=== PATIENT | female | born 1975 | race Caucasian/White ===

== ENCOUNTER → 2016-07-20 | Outpatient (CLI) | payer OTHER ==
--- NOTE | 2016-07-20 15:45 | CT ---
EXAMINATION TYPE: CT iac wo con DATE OF EXAM: 07/20/2016 2:35 PM COMPARISON: CT brain 15 July 2015 HISTORY: Arthralgia of temporomandibular joint CT DLP: 117.20mGycm Automated exposure control for dose reduction was used. FINDINGS: The external auditory canals are patent bilaterally. Mastoid air cells show fluid density on the right, to lesser extent there is some fluid density in the left temporal bone. The middle ear ossicles are symmetric and unremarkable. Some minimal soft tissue density is present abutting the au ditory ossicles on the right at the level of the tympanic membrane. The scutum is preserved bilatera lly. The cochlea and the semicircular canals are symmetric and unremarkable. Vestibular aqueduct an d internal carotid canal appear unremarkable. Temporomandibular joints are maintained bilaterally, s ome minimal marginal spurring suggestive of some mild osteoarthritic change, there is some joint spac e loss. 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 Additional findings above.
== END | disposition home or self-care (01) ==
LOC: RADCTMAIN 14:12
PROVIDERS: ATTEND Otolaryngology
DX: H70.92 Unspecified mastoiditis, left ear (principal)
CPT/HCPCS: 70480

== ENCOUNTER → 2016-08-05 | Outpatient (CLI) | payer OTHER ==
--- NOTE | 2016-08-05 09:49 | MR ---
EXAMINATION TYPE: MR cervical spine wo con DATE OF EXAM: 08/05/2016 8:41 AM COMPARISON: 04/06/2016 HISTORY: 40-year-old female with cervical spine disc disorder with radiculopathy. TECHNIQUE: Multiplanar, multisequence images of the cervical spine were acquired. FINDINGS: No craniocervical junction abnormality, predental space widening, or prevertebral soft tissue swellin g. Reversal of the normal cervical lordosis with preserved alignment. Similar mild diffuse heterogeneity of marrow signal. Redemonstrated variable disc desiccation and disc bulging/disc osteophyte complex formation particula rly from C3 through C7 levels with mild disc interspace narrowing at C5-C6 and C6-C7. Scattered mild facet degenerative changes are also present. At C2-C3, no significant spinal canal or neuroforaminal stenosis. At C3-C4, similar right paracentral disc osteophyte complex minimally impressing onto the ventral the paolo sac without significant spinal canal or neuroforaminal stenosis. Mild left-sided facet arthropath y is present. At C4-C5, left paracentral broad-based disc osteophyte complex with uncovertebral joint and facet deg enerative change. There is minimal impression on the ventral thecal sac abutting and minimally flatte racquel the ventral cord. No significant neuroforaminal stenosis. At C5-C6, redemonstrated left paracentral disc protrusion/disc osteophyte complex causing mild narrow ing of the spinal canal focally abutting and indenting the left ventral cord. Additional facet degene rative change without significant neuroforaminal stenosis. At C6/C7, redemonstrated left paracentral disc protrusion causing mild overall narrowing of the spina l canal and with similar focal abutment and indentation of the left ventral cord. There is left-sided uncovertebral joint and bilateral facet degenerative change mildly narrowing the left neuroforamen, similar to prior. At C7-T1, no significant spinal canal or neuroforaminal stenosis. No prevertebral or paravertebral soft tissue abnormality seen. The degree of patient motion artifact limits accurate assessment for any cord signal abnormality. No definite cord signal change on the axial sequence. IMPRESSION: 1. Relatively similar degenerative disc disease from C3 through C7 levels with disc bulges/disc osteo phyte complexes minimally impressing onto the thecal sac and causing minimal ventral cord flattening at various levels. 2. Scattered facet arthropathy. Preserved alignment. 3. The left paracentral disc protrusion at C6-C7 causing focal left ventral cord indentation, overall mild canal narrowing, and mild left neuroforaminal stenosis is unchanged as well.
== END | disposition home or self-care (01) ==
LOC: RADMRIMAIN 07:59
PROVIDERS: ATTEND Ophthalmology
DX: M48.02 Spinal stenosis, cervical region (principal); M99.71 Connective tissue and disc stenosis of intervertebral foramina of cervical region; M50.11 Cervical disc disorder with radiculopathy, high cervical region; M50.120 Mid-cervical disc disorder, unspecified level; M46.82 Other specified inflammatory spondylopathies, cervical region
CPT/HCPCS: 72141

== ENCOUNTER 2016-09-02 11:01 | Emergency (ER) | payer OTHER ==
[2016-09-02] MEDS ORDERED: ONDANSETRON 4 MG/2 ML VIAL IVP STA (11:57)
[2016-09-02] MEDS ORDERED: SODIUM CHLORIDE 0.9% 1,000 ML IV STA (11:57)
[2016-09-02] MEDS ORDERED: MORPHINE SULFATE 4 MG/ML SYRINGE IV STA (11:57)
[2016-09-02] MEDS ORDERED: diphenhydrAMINE 50 MG/ML 1 ML VIAL IVP STA (11:58)
[2016-09-02] MEDS ORDERED: ACETAMINOPHEN IV (For NPO) 1,000 MG in EMPTY BAG 1 BAG IVPB STA (11:58)
[2016-09-02 12:40] LABS: Basophils % (A) 0 %; CHCM 33.8; Eosinophils # (A) 0.2 k/uL (0-0.7); Eosinophils % (A) 2 %; HCT 38.8 % (34.0-46.0); HDW 2.13; HGB 12.6 gm/dL (11.4-16.0); Luc # (Auto) 0.15; Luc % (Auto) 1; Lymphocytes # (A) 2.2 k/uL (1.0-4.8); Lymphocytes % (A) 20 %; MCH 27.9 pg (25.0-35.0); MCHC 32.4 g/dL (31.0-37.0); MCV 86.1 fL (80.0-100.0); Mean Platelet Volume 7.4; Monocytes # (A) 0.4 k/uL (0-1.0); Monocytes % (A) 3 %; Neutrophils # (A) 7.9 k/uL (1.3-7.7); Neutrophils % (A) 73 %; WBC 10.9 k/uL (3.8-10.6); WBC (Perox) 11.13
[2016-09-02 12:52] LABS: ALT 40 U/L (9-52); AST 29 U/L (14-36); Alkaline Phosphatase 98 U/L (38-126); Anion Gap 8 mmol/L; Blood Urea Nitrogen 11 mg/dL (7-17); Calcium 9.5 mg/dL (8.4-10.2); Carbon Dioxide 27 mmol/L (22-30); Chloride 104 mmol/L (98-107); Glucose 92 mg/dL (74-99); Magnesium 2.1 mg/dL (1.6-2.3); Non-African American GFR(MDRD) >60 (>60 ml/min/1.73 sqM); Phosphorous 3.5 mg/dL (2.5-4.5); Potassium 4.1 mmol/L (3.5-5.1); Sodium 139 mmol/L (137-145); Total Bilirubin 0.6 mg/dL (0.2-1.3)
[2016-09-02 13:03] LABS: Creatine Kinase 56 U/L (30-135)
--- NOTE | 2016-09-02 13:03 | XR ---
EXAMINATION TYPE: XR chest 1V DATE OF EXAM: 09/02/2016 12:53 PM HISTORY: shunt. REFERENCE: Previous study dated 03/11/2015. FINDINGS: The lungs are clear. Pleural spaces are clear. Heart size is within normal limits. No shunt tubing is visualized. IMPRESSION: NORMAL CHEST.
--- NOTE | 2016-09-02 13:05 | XR ---
EXAMINATION TYPE: XR abdomen 1V DATE OF EXAM ORDERED: 09/02/2016 12:53 PM HISTORY: shunt. COMPARISON: Previous study dated 03/17/2016. FINDINGS: There has been a previous cholecystectomy. Tubing projects over the right midabdomen. The abdominal gas pattern is normal. There is no evidence of obstruction or free air. IMPRESSION: 1. NO ACUTE ABDOMINAL ABNORMALITY. 2. THE PATIENT'S SHUNT TUBING MAY HAVE BECOME DISCONNECTED AND IS COILED IN THE RIGHT MID ABDOMEN.
--- NOTE | 2016-09-02 13:06 | XR ---
EXAMINATION TYPE: XR skull complete DATE OF EXAM ORDERED: 09/02/2016 12:53 PM HISTORY: shunt. COMPARISON: None. FINDINGS: The skull appears normal. No depressed skull fractures are seen. The sella turcica appears normal. No shunt tubing is identified. IMPRESSION: NORMAL SKULL.
[2016-09-02 13:13] LABS: Creatine Kinase MB <0.2 ng/mL (0.0-2.4)
[2016-09-02] MEDS ORDERED: METOCLOPRAMIDE 5 MG/ML 2 ML VIAL IVP STA (13:39)
[2016-09-02] MEDS ORDERED: HYDROmorphone 2 MG/ML 1 ML SYRINGE IVP STA (13:39)
--- NOTE | 2016-09-02 13:40 | ED ---
General Adult HPI - General Chief complaint: Headache Stated complaint: headache, back pain Time Seen by Provider: 09/02/16 11:35 Source: patient, RN notes reviewed, old records reviewed Mode of arrival: ambulatory Limitations: no limitations - History of Present Illness Initial comments: This is a 40-year-old female here for evaluation of headache. Severe headache. Patient has history of pseudotumor cerebra. She has shunt placement. Patient is medically increasing for 2 days and feels like the shunt position movement in her back. Patient also is complaining to her low back area where the shunt is placed. Patient denies any other injuries, no trauma, no fevers. - Related Data Home Medications Medication Instructions Recorded Confirmed Acetaminophen Tab [Tylenol] 500 mg PO Q4H PRN 03/13/14 09/02/16 Folic Acid 1 mg PO DAILY 03/13/14 09/02/16 Nitroglycerin Sl Tabs [Nitrostat] 0.4 mg SUBLINGUAL Q5M PRN 03/13/14 09/02/16 Albuterol Inhaler [Ventolin Hfa 2 puff INHALATION RT-Q6H PRN 01/04/15 09/02/16 Inhaler] Albuterol Nebulized [Ventolin 2.5 mg INHALATION RT-Q6H PRN 03/06/15 09/02/16 Nebulized] Citalopram Hydrobromide [CeleXA] 40 mg PO HS 10/26/15 09/02/16 Loratadine [Claritin] 10 mg PO HS 10/26/15 09/02/16 Pioglitazone [Actos] 15 mg PO QAM 03/14/16 09/02/16 Levothyroxine Sodium [Synthroid] 50 mcg PO MOTUWETHFRSA 03/17/16 09/02/16 Losartan Potassium [Cozaar] 100 mg PO HS 03/17/16 09/02/16 Meclizine [Antivert] 12.5 mg PO TID 03/25/16 09/02/16 Ergocalciferol [Vitamin D2 50,000 unit PO SA 09/02/16 09/02/16 (DRISDOL)] Gabapentin [Neurontin] 300 mg PO HS 09/02/16 09/02/16 Levothyroxine Sodium [Synthroid] 100 mcg PO PADILLA 09/02/16 09/02/16 Ranitidine HCl 150 mg PO BID 09/02/16 09/02/16 Allergies Allergy/AdvReac Type Severity Reaction Status Date / Time NSAIDS (Non-Steroidal Allergy RENAL Verified 09/02/16 12:16 Anti-Inflamma DISEASE propranolol HCl Allergy Rash/Hives Verified 09/02/16 12:16 [From Inderal LA] ibuprofen [From Motrin] AdvReac RENAL Verified 09/02/16 12:16 DISEASE IRON INFUSION AdvReac Dyspnea Uncoded 09/02/16 11:06 Review of Systems ROS Statement: Those systems with pertinent positive or pertinent negative responses have been documented in the HPI. ROS Other: All systems not noted in ROS Statement are negative. 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 Hx: anemia,vertigo, hiatal hernia History of Any Multi-Drug Resistant Organisms: None Reported Past Surgical History: Cholecystectomy, Hernia Repair, Hysterectomy, Orthopedic Surgery, Tubal Ligation, Uterine Ablation Additional Past Surgical History / Comment(s): lumbar shunt wraps around to rt side of abd., arthroscopy left knee x 3 Past Anesthesia/Blood Transfusion Reactions: Motion Sickness, Postoperative Nausea & Vomiting (PONV) Additional Past Anesthesia/Blood Transfusion Reaction / Comment(s): vertigo Past Psychological History: Depression Smoking Status: Former smoker Past Alcohol Use History: Rare Additional Past Alcohol Use History / Comment(s): quit smoking 2 weeks ago, smoked since age 15, < 1/2ppd Past Drug Use History: None Reported - Past Family History Brother(s) Family Medical History: Cancer Mother Family Medical History: AFIB Father Family Medical History: Cancer Additional Family Medical History / Comment(s): Colon CA General Exam Limitations: no limitations General appearance: alert, in no apparent distress Head exam: Present: atraumatic, normocephalic, normal inspection Eye exam: Present: normal appearance, PERRL, EOMI. Absent: scleral icterus, conjunctival injection, periorbital swelling ENT exam: Present: normal exam, mucous membranes moist Neck exam: Present: normal inspection. Absent: tenderness, meningismus, lymphadenopathy Respiratory exam: Present: normal lung sounds bilaterally. Absent: respiratory distress, wheezes, rales, rhonchi, stridor Cardiovascular Exam: Present: regular rate, normal rhythm, normal heart sounds. Absent: systolic murmur, diastolic murmur, rubs, gallop, clicks GI/Abdominal exam: Present: soft, normal bowel sounds. Absent: distended, tenderness, guarding, rebound, rigid Extremities exam: Present: normal inspection, full ROM, normal capillary refill. Absent: tenderness, pedal edema, joint swelling, calf tenderness Back exam: Present: normal inspection Neurological exam: Present: alert, oriented X3, CN II-XII intact Psychiatric exam: Present: normal affect, normal mood Skin exam: Present: warm, dry, intact, normal color. Absent: rash Course Vital Signs 09/02/16 09/02/16 11:05 14:00 Temperature 98.2 F 98 F Pulse Rate 88 70 Respiratory 20 16 Rate Blood Pressure 135/72 120/70 O2 Sat by Pulse 97 98 Oximetry Medical Decision Making - Medical Decision Making 40. ER for evaluation of headache, patient has displacement of ventricular shunt, patient will follow-up with Dr. dahiana toledo, pain is improved at this time patient can be discharged home - Lab Data Result diagrams: 09/02/16 12:32 09/02/16 12:32 Lab Results 09/02/16 09/02/16 09/02/16 Range/Units 12:32 12:32 12:32 WBC 10.9 H (3.8-10.6) k/uL RBC 4.50 (3.80-5.40) m/uL Hgb 12.6 (11.4-16.0) gm/dL Hct 38.8 (34.0-46.0) % MCV 86.1 (80.0-100.0) fL MCH 27.9 (25.0-35.0) pg MCHC 32.4 (31.0-37.0) g/dL RDW 13.0 (11.5-15.5) % Plt Count 253 (150-450) k/uL Neutrophils % 73 % Lymphocytes % 20 % Monocytes % 3 % Eosinophils % 2 % Basophils % 0 % Neutrophils # 7.9 H (1.3-7.7) k/uL Lymphocytes # 2.2 (1.0-4.8) k/uL Monocytes # 0.4 (0-1.0) k/uL Eosinophils # 0.2 (0-0.7) k/uL Basophils # 0.0 (0-0.2) k/uL Sodium 139 (137-145) mmol/L Potassium 4.1 (3.5-5.1) mmol/L Chloride 104 (98-107) mmol/L Carbon Dioxide 27 (22-30) mmol/L Anion Gap 8 mmol/L BUN 11 (7-17) mg/dL Creatinine 1.00 (0.52-1.04) mg/dL Est GFR (MDRD) Af Amer >60 (>60 ml/min/1.73 sqM) Est GFR (MDRD) Non-Af >60 (>60 ml/min/1.73 sqM) Glucose 92 (74-99) mg/dL Calcium 9.5 (8.4-10.2) mg/dL Phosphorus 3.5 (2.5-4.5) mg/dL Magnesium 2.1 (1.6-2.3) mg/dL Total Bilirubin 0.6 (0.2-1.3) mg/dL AST 29 (14-36) U/L ALT 40 (9-52) U/L Alkaline Phosphatase 98 (38-126) U/L Total Creatine Kinase 56 (30-135) U/L CK-MB (CK-2) <0.2 (0.0-2.4) ng/mL CK-MB (CK-2) Rel Index Total Protein 7.0 (6.3-8.2) g/dL Albumin 3.9 (3.5-5.0) g/dL - Radiology Data Radiology results: report reviewed (X-ray shunt series does show displacement of shot), image reviewed Disposition Clinical Impression: Displacement of brain ventricular shunt, Headache Disposition: HOME SELF-CARE Condition: Good Instructions: Acute Headache (ED) Referrals: Meryl Munoz MD [Primary Care Provider] - 1-2 days
[2016-09-02 14:01] VITALS: BP 120/70; PULSE 70; RESP 16; TEMP 98
== END 2016-09-02 14:00 | disposition home or self-care (01) ==
LOC: EC 11:01
DX: T85.02XA Displacement of ventricular intracranial (communicating) shunt, initial encounter (principal); R51 Headache; M54.9 Dorsalgia, unspecified; I10 Essential (primary) hypertension; E07.9 Disorder of thyroid, unspecified; E11.9 Type 2 diabetes mellitus without complications; Z86.79 Personal history of other diseases of the circulatory system; K21.9 Gastro-esophageal reflux disease without esophagitis; Z53.20 Procedure and treatment not carried out because of patient's decision for unspecified reasons; Z79.52 Long term (current) use of systemic steroids; Z79.899 Other long term (current) drug therapy; Z88.6 Allergy status to analgesic agent; Z88.8 Allergy status to other drugs, medicaments and biological substances; Z98.2 Presence of cerebrospinal fluid drainage device; Y83.8 Other surgical procedures as the cause of abnormal reaction of the patient, or of later complication, without mention of misadventure at the time of the procedure
CPT/HCPCS: 36415; 80053; 82550; 82553; 83735; 84100; 85025; 70260; 71010; 74000; 99284; 96374; 96375 ×4; 96361; J1170; J1200; J2765; J2405; J0131

== ENCOUNTER → 2016-12-08 | Outpatient (CLI) | payer OTHER ==
[2016-12-08 08:37] LABS: Blood Urea Nitrogen 14 mg/dL (7-17); Non-African American GFR(MDRD) >60 (>60 ml/min/1.73 sqM)
--- NOTE | 2016-12-08 14:11 | MR ---
EXAMINATION TYPE: MR lumbar spine wo/w con DATE OF EXAM: 12/08/2016 COMPARISON: 11/05/2010 HISTORY: Lumbago CONTRAST: 20 mL intravenous MultiHance. TECHNIQUE: Multiplanar, multisequence images of the lumbar spine were acquired. FINDINGS: Cord terminates at the T12-L1 level. L5-S1: No significant disc bulge or disc herniation. No spinal canal stenosis. No foraminal stenosi s. Neural foramen are patent.. L4-L5: No significant disc bulge or disc herniation. No spinal canal stenosis. No foraminal stenosi s. Neural foramen are patent.. L3-L4: No significant disc bulge or disc herniation. No spinal canal stenosis. No foraminal stenosi s. Neural foramen are patent.. L2-L3: No significant disc bulge or disc herniation. No spinal canal stenosis. No foraminal stenosi s. Neural foramen are patent.. L1-L2: No significant disc bulge or disc herniation. No spinal canal stenosis. No foraminal stenosi s. Neural foramen are patent.. T12-L1: No significant disc bulge or disc herniation. No spinal canal stenosis. No foraminal stenos is. Neural foramen are patent.. No abnormal enhancement. IMPRESSION: 1. Normal MRI lumbar spine. 2. Examination appears stable from comparison.
== END | disposition home or self-care (01) ==
LOC: RADMRIMAIN 08:13
PROVIDERS: ATTEND Psychiatry & Neurology Neurology
DX: M54.5 Low back pain (principal)
CPT/HCPCS: 82565; 84520; 72158; 36415; A9577

== ENCOUNTER 2018-02-25 11:33 | Emergency (ER) | payer OTHER ==
[2018-02-25 11:46] VITALS: BP 104/77; PULSE 80; RESP 16; TEMP 98.5
[2018-02-25] MEDS ORDERED: CYCLOBENZAPRINE 10 MG TAB PO STA (12:30)
--- NOTE | 2018-02-25 12:45 | ED ---
General Adult HPI - General Chief complaint: Extremity Problem,Nontraumatic Stated complaint: rt sided hip pain Source: patient Mode of arrival: ambulatory Limitations: no limitations - History of Present Illness Initial comments: Dictation was produced using [employer] dictation software. please excuse any grammatical, word or spelling errors. Chief Complaint: 42-year-old female past medical history of pseudotumor cerebri status post shunt and diabetes presents with right hip pain. History of Present Illness: Chin helping her family members, when she began feeling these symptoms. Denies any trauma. Denies any constitutional symptoms. Patient denies any neuro deficits. She localizes the pain to her right lateral hip with radiation down to the right lateral knee. Patient has history of left knee arthritis. The ROS documented in this emergency department record has been reviewed and confirmed by me. Those systems with pertinent positive or negative responses have been documented in the HPI. All other systems are other negative and/or noncontributory. - Related Data Home Medications Medication Instructions Recorded Confirmed Acetaminophen Tab [Tylenol] 500 mg PO Q4H PRN 03/13/14 04/24/17 Folic Acid 1 mg PO DAILY 03/13/14 04/24/17 Nitroglycerin Sl Tabs [Nitrostat] 0.4 mg SUBLINGUAL Q5M PRN 03/13/14 04/24/17 Albuterol Inhaler [Ventolin Hfa 2 puff INHALATION RT-Q6H PRN 01/04/15 04/24/17 Inhaler] Albuterol Nebulized [Ventolin 2.5 mg INHALATION RT-Q6H PRN 03/06/15 04/24/17 Nebulized] Citalopram Hydrobromide [CeleXA] 40 mg PO HS 10/26/15 04/24/17 Loratadine [Claritin] 10 mg PO HS 10/26/15 04/24/17 Pioglitazone [Actos] 15 mg PO QAM 03/14/16 04/24/17 Levothyroxine Sodium [Synthroid] 50 mcg PO MOTUWETHFRSA 03/17/16 04/24/17 Losartan Potassium [Cozaar] 100 mg PO QAM 03/17/16 04/24/17 Meclizine [Antivert] 12.5 mg PO BID 03/25/16 04/24/17 Gabapentin [Neurontin] 300 mg PO HS 09/02/16 04/24/17 Levothyroxine Sodium [Synthroid] 100 mcg PO PADILLA 09/02/16 04/24/17 Ranitidine HCl 150 mg PO BID 09/02/16 04/24/17 Dicyclomine [Bentyl] 10 mg PO BID 04/19/17 04/24/17 Ergocalciferol [Vitamin D2] 50,000 unit PO SA 04/19/17 04/24/17 Metoclopramide [Reglan] 10 mg PO BID 04/19/17 04/24/17 Omeprazole [PriLOSEC] 20 mg PO AC-BID 04/19/17 04/24/17 Previous Rx's Medication Instructions Recorded Cyclobenzaprine [Flexeril] 10 mg PO TID PRN #12 tab 02/25/18 Allergies Allergy/AdvReac Type Severity Reaction Status Date / Time levofloxacin [From Levaquin] Allergy Rash/Hives Verified 02/25/18 11:46 NSAIDS (Non-Steroidal Allergy RENAL Verified 02/25/18 11:46 Anti-Inflamma DISEASE propranolol HCl Allergy Rash/Hives Verified 02/25/18 11:46 [From Inderal LA] ibuprofen [From Motrin] AdvReac RENAL Verified 02/25/18 11:46 DISEASE IRON INFUSION AdvReac Dyspnea Uncoded 02/25/18 11:46 Review of Systems ROS Statement: Those systems with pertinent positive or pertinent negative responses have been documented in the HPI. ROS Other: All systems not noted in ROS Statement are negative. 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 Hx: anemia, vertigo, hiatal hernia History of Any Multi-Drug Resistant Organisms: None Reported Past Surgical History: Cholecystectomy, Hernia Repair, Hysterectomy, Orthopedic Surgery, Tubal Ligation, Uterine Ablation Additional Past Surgical History / Comment(s): NECK FUSION 5-6-7,lumbar shunt wraps around to rt side of abd., arthroscopy left knee x 3 Past Anesthesia/Blood Transfusion Reactions: Motion Sickness, Postoperative Nausea & Vomiting (PONV) Additional Past Anesthesia/Blood Transfusion Reaction / Comment(s): vertigo Past Psychological History: Anxiety, Depression Smoking Status: Former smoker Past Alcohol Use History: Rare Past Drug Use History: None Reported - Past Family History Brother(s) Family Medical History: Cancer Additional Family Medical History / Comment(s): THROAT Mother Family Medical History: AFIB, Cancer Additional Family Medical History / Comment(s): BONE Father Family Medical History: Cancer Additional Family Medical History / Comment(s): Colon CA General Exam - General Exam Comments Initial Comments: PHYSICAL EXAM: General Impression: Alert and oriented x3, not in acute distress HEENT: Normocephalic atraumatic, extra-ocular movements intact, pupils equal and reactive to light bilaterally, mucous membranes moist. Cardiovascular: Heart regular rate and rhythm, S1&S2 audible, no murmurs, rubs or gallops Chest: Lungs clear to auscultation bilaterally, no rhonchi, no wheeze, no rales Abdomen: Bowel sounds present, abdomen soft, non-tender, non-distended, no organomegaly Musculoskeletal: Pulses present and equal in all extremities, no peripheral edema, tenderness to palpation over the right IT band Motor: Power 5/5 bilaterally, no focal deficits noted Neurological: CN II-XII grossly intact, no focal motor or sensory deficits noted Skin: Intact with no visualized rashes Psych: Normal affect and mood Limitations: no limitations Course Vital Signs 02/25/18 11:43 Temperature 98.5 F Pulse Rate 80 Respiratory 16 Rate Blood Pressure 104/77 O2 Sat by Pulse 98 Oximetry Medical Decision Making - Medical Decision Making ED course: 42-year-old female presents with right lower extremity pain. Vital signs upon arrival are within acceptable limits. Patient is well-appearing. She is able to ambulate however with some pain. No pyrexia. Patient's pain is localized to the right lateral hip. Patient's symptoms likely secondary to strain of the right IT band. Patient given Flexeril. Patient counseled on early mobility and pain control. Patient prescription for Flexeril. X-rays obtained showing no acute processes. There is mild joint space narrowing bilaterally. This could represent arthritis. Patient given prescription for Flexeril. She is discharged told to follow-up with her primary care physician. Patient understandable agreeable to plan. She is told to return to the [facility] department any worsening symptoms. Disposition Clinical Impression: Muscle strain of thigh Disposition: HOME SELF-CARE Condition: Good Prescriptions: Cyclobenzaprine [Flexeril] 10 mg PO TID PRN #12 tab PRN Reason: Pain Is patient prescribed a controlled substance at d/c from ED?: No When asked, does pt state using other controlled substances?: No Referrals: Kelsey Pederson MD [Primary Care Provider] - 1-2 days Time of Disposition: 13:25
--- NOTE | 2018-02-25 13:13 | XR ---
EXAMINATION TYPE: XR Hip RT and AP Pelvis DATE OF EXAM: 02/25/2018 COMPARISON: NONE HISTORY: 42 year-old female right hip pain TECHNIQUE: AP view pelvis and 2 views right hip. FINDINGS: SI joints are symmetric and intact as is the pubic symphysis. There is mild joint space narrowing in both hips with mild marginal spurring. No acute fracture, subluxation, or dislocation. IMPRESSION: Mild joint space narrowing at both hips. No acute osseous abnormality seen.
== END 2018-02-25 13:36 | disposition home or self-care (01) ==
LOC: EC 11:33
DX: S76.911A Strain of unspecified muscles, fascia and tendons at thigh level, right thigh, initial encounter (principal); J44.9 Chronic obstructive pulmonary disease, unspecified; E11.9 Type 2 diabetes mellitus without complications; K21.9 Gastro-esophageal reflux disease without esophagitis; I10 Essential (primary) hypertension; G47.30 Sleep apnea, unspecified; E07.9 Disorder of thyroid, unspecified; F41.9 Anxiety disorder, unspecified; F32.9 Major depressive disorder, single episode, unspecified; Z87.891 Personal history of nicotine dependence; Z87.39 Personal history of other diseases of the musculoskeletal system and connective tissue; Z99.89 Dependence on other enabling machines and devices; Z90.49 Acquired absence of other specified parts of digestive tract; Z90.710 Acquired absence of both cervix and uterus; Z98.51 Tubal ligation status; Z98.1 Arthrodesis status; Z98.890 Other specified postprocedural states; Z79.84 Long term (current) use of oral hypoglycemic drugs; Z79.899 Other long term (current) drug therapy; Z88.1 Allergy status to other antibiotic agents; Z88.6 Allergy status to analgesic agent; Z88.8 Allergy status to other drugs, medicaments and biological substances; X58.XXXA Exposure to other specified factors, initial encounter
CPT/HCPCS: 73502; 99284

== ENCOUNTER 2018-04-25 06:56 | Day surgery (SDC) | payer OTHER ==
[2018-04-23 08:33] VITALS: BMI 49.3
[~2018-04-25 06:56] MED LIST: HYDROmorphone 1 MG/ML 1 ML SYRINGE IVP PRN; LACTATED RINGERS 1,000 ML IV SCH
[2018-04-25 07:21] VITALS: RESP 16; TEMP 97.9
[2018-04-25 07:24] LABS: Glucose,Whole Blood 106 mg/dL (75-99)
[2018-04-25] MEDS ORDERED: PROPOFOL 10 MG/ML 20 ML VIAL IV ONE (08:01)
--- NOTE | 2018-04-25 08:03 | P.GSHP ---
History of Present Illness H&P Date: 04/25/18 Chief Complaint: GI bleed This a 42-year-old female presents today for EGD and colonoscopy. Patient had issues with GI bleed. She's also complaints of abdominal pain. 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 Hx: anemia, vertigo, History of Any Multi-Drug Resistant Organisms: None Reported Past Surgical History: Cholecystectomy, Hernia Repair, Hysterectomy, Orthopedic Surgery, Tubal Ligation, Uterine Ablation Additional Past Surgical History / Comment(s): NECK FUSION 5-6-7,lumbar shunt wraps around to rt side of abd., arthroscopy left knee x 3; colonoscopy Past Anesthesia/Blood Transfusion Reactions: Motion Sickness, Postoperative Nausea & Vomiting (PONV) Additional Past Anesthesia/Blood Transfusion Reaction / Comment(s): vertigo Smoking Status: Former smoker - Past Family History Brother(s) Family Medical History: Cancer Additional Family Medical History / Comment(s): THROAT Mother Family Medical History: AFIB, Cancer Additional Family Medical History / Comment(s): BONE Father Family Medical History: Cancer Additional Family Medical History / Comment(s): Colon CA Medications and Allergies Home Medications Medication Instructions Recorded Confirmed Type Acetaminophen Tab [Tylenol] 500 mg PO Q4H PRN 03/13/14 04/25/18 History Folic Acid 1 mg PO DAILY 03/13/14 04/25/18 History Nitroglycerin Sl Tabs [Nitrostat] 0.4 mg SUBLINGUAL Q5M PRN 03/13/14 04/23/18 History Albuterol Inhaler [Ventolin Hfa 2 puff INHALATION RT-Q6H PRN 01/04/15 04/25/18 History Inhaler] Citalopram Hydrobromide [CeleXA] 40 mg PO HS 10/26/15 04/25/18 History Loratadine [Claritin] 10 mg PO HS 10/26/15 04/25/18 History Levothyroxine Sodium [Synthroid] 50 mcg PO MOTUWETHFRSA 03/17/16 04/25/18 History Meclizine [Antivert] 12.5 mg PO BID 03/25/16 04/25/18 History Gabapentin [Neurontin] 300 mg PO HS 09/02/16 04/25/18 History Levothyroxine Sodium [Synthroid] 100 mcg PO PADILLA 09/02/16 04/25/18 History Ranitidine HCl 150 mg PO BID 09/02/16 04/25/18 History Dicyclomine [Bentyl] 10 mg PO BID 04/19/17 04/25/18 History Ergocalciferol [Vitamin D2] 50,000 unit PO SA 04/19/17 04/25/18 History Metoclopramide [Reglan] 10 mg PO BID PRN 04/19/17 04/25/18 History Omeprazole [PriLOSEC] 40 mg PO AC-BRKFST 04/19/17 04/25/18 History Cyclobenzaprine [Flexeril] 10 mg PO TID PRN #12 tab 02/25/18 04/23/18 Rx Atorvastatin [Lipitor] 20 mg PO HS 04/23/18 04/25/18 History Beclomethasone Dipropionate [Qvar 1 puff INHALATION DAILY 04/23/18 04/25/18 History 80 mcg] Fluticasone Nasal [place] [Flonase 1 spray EA NOSTRIL DAILY 04/23/18 04/25/18 History Nasal [place]] metFORMIN HCL [Glucophage] 500 mg PO BID 04/23/18 04/25/18 History Allergies Allergy/AdvReac Type Severity Reaction Status Date / Time levofloxacin [From Levaquin] Allergy Rash/Hives Verified 04/25/18 07:16 NSAIDS (Non-Steroidal Allergy RENAL Verified 04/25/18 07:16 Anti-Inflamma DISEASE propranolol HCl Allergy Rash/Hives Verified 04/25/18 07:16 [From Inderal LA] ibuprofen [From Motrin] AdvReac RENAL Verified 04/25/18 07:16 DISEASE IRON INFUSION AdvReac Dyspnea Uncoded 04/25/18 07:16 Surgical - Exam Vital Signs Temp Pulse Resp BP Pulse Ox 97.9 F 74 16 121/83 97 04/25/18 07:19 04/25/18 07:19 04/25/18 07:19 04/25/18 07:19 04/25/18 07:19 - General well developed, no distress - Eyes PERRL - ENT normal pinna - Neck no masses - Respiratory normal expansion - Cardiovascular Rhythm: regular - Abdomen Abdomen: soft, non tender Results - Labs Abnormal Lab Results - Last 24 Hours (Table) 04/25/18 Range/Units 07:21 POC Glucose (mg/dL) 106 H (75-99) mg/dL Assessment and Plan Assessment: GI bleed. We'll perform EGD and colonoscopy.
--- NOTE | 2018-04-25 08:35 | P.OP ---
Date of Procedure: 04/25/18 Preoperative Diagnosis: GI bleed Postoperative Diagnosis: Antral gastritis Mild internal hemorrhoids Procedure(s) Performed: EGD Colonoscopy Anesthesia: MAC Surgeon: Paul Orta Pathology: other (Antrum) Condition: stable Disposition: PACU Description of Procedure: Patient's placed on the endoscopy table in the lateral position. She received IV sedation. The gastroscope placed oropharynx passed in the esophagus and stomach. Scope was then placed through the pylorus. First and second portion of the duodenum appeared normal. Scope was then brought back the antrum this was inflamed. A biopsies performed. Scope was unretroflexed and remainder stomach appeared normal. The patient appeared to have a previous fundoplication. There is no evidence of a hiatal hernia. The distal esophagus appeared normal. The proximal esophagus..e Scope was withdrawn for patient. Next digital rectal exam was performed which revealed mild internal hemorrhoids.. Flexible colonoscope was then placed patient anus and passed throughout the entire colon. The ileocecal valve was visualized. The cecum, ascending and transverse colon appeared normal. The descending and sigmoid: appeared normal. Scope was withdrawn into the sigmoid colon was normal. Scope was then withdrawn back the rectum and this appeared normal. Scope was withdrawn for patient.
[2018-04-25 08:39] VITALS: PULSE 68
[2018-04-25 08:51] VITALS: BP 110/69
== END 2018-04-25 09:14 | disposition home or self-care (01) ==
LOC: ORWHC2ENDO 06:56
PROVIDERS: ATTEND Surgery
DX: K29.50 Unspecified chronic gastritis without bleeding (principal); K64.8 Other hemorrhoids; J44.9 Chronic obstructive pulmonary disease, unspecified; E11.9 Type 2 diabetes mellitus without complications; E07.9 Disorder of thyroid, unspecified; Z87.891 Personal history of nicotine dependence; K21.9 Gastro-esophageal reflux disease without esophagitis; Z88.6 Allergy status to analgesic agent; Q60.0 Renal agenesis, unilateral; Z90.49 Acquired absence of other specified parts of digestive tract; Z90.710 Acquired absence of both cervix and uterus; Z80.0 Family history of malignant neoplasm of digestive organs; Z79.84 Long term (current) use of oral hypoglycemic drugs; Z79.890 Hormone replacement therapy; Z79.899 Other long term (current) drug therapy; Z88.3 Allergy status to other anti-infective agents; Z88.8 Allergy status to other drugs, medicaments and biological substances
CPT/HCPCS: 88305; 45378; 43239; J2704

== ENCOUNTER 2018-06-30 11:29 | Emergency (ER) | payer OTHER ==
[2018-06-30 11:49] VITALS: BP 113/82; PULSE 74; RESP 18; TEMP 98.2
--- NOTE | 2018-06-30 12:08 | ED ---
General Adult HPI - General Chief complaint: ENT Stated complaint: ear pain Time Seen by Provider: 06/30/18 11:54 Source: patient, RN notes reviewed Mode of arrival: ambulatory Limitations: no limitations - History of Present Illness Initial comments: Patient is a pleasant 42-year-old female presenting to the emergency Department with complaints of sinus congestion and left ear pain. Symptoms have been present for one or 2 weeks. Patient states she was started on doxycycline 1 week ago however no improvement of symptoms. Patient has sinus congestion with drainage. Patient does have occasional cough with occasional brown/green sputum. Patient has left ear pain. No dyspnea. No fevers however patient has had chills. - Related Data Home Medications Medication Instructions Recorded Confirmed Acetaminophen Tab [Tylenol] 500 mg PO Q4H PRN 03/13/14 04/25/18 Folic Acid 1 mg PO DAILY 03/13/14 04/25/18 Nitroglycerin Sl Tabs [Nitrostat] 0.4 mg SUBLINGUAL Q5M PRN 03/13/14 04/23/18 Albuterol Inhaler [Ventolin Hfa 2 puff INHALATION RT-Q6H PRN 01/04/15 04/25/18 Inhaler] Citalopram Hydrobromide [CeleXA] 40 mg PO HS 10/26/15 04/25/18 Loratadine [Claritin] 10 mg PO HS 10/26/15 04/25/18 Levothyroxine Sodium [Synthroid] 50 mcg PO MOTUWETHFRSA 03/17/16 04/25/18 Meclizine [Antivert] 12.5 mg PO BID 03/25/16 04/25/18 Gabapentin [Neurontin] 300 mg PO HS 09/02/16 04/25/18 Levothyroxine Sodium [Synthroid] 100 mcg PO PADILLA 09/02/16 04/25/18 Ranitidine HCl 150 mg PO BID 09/02/16 04/25/18 Dicyclomine [Bentyl] 10 mg PO BID 04/19/17 04/25/18 Ergocalciferol [Vitamin D2] 50,000 unit PO SA 04/19/17 04/25/18 Metoclopramide [Reglan] 10 mg PO BID PRN 04/19/17 04/25/18 Omeprazole [PriLOSEC] 40 mg PO AC-BRKFST 04/19/17 04/25/18 Atorvastatin [Lipitor] 20 mg PO HS 04/23/18 04/25/18 Beclomethasone Dipropionate [Qvar 1 puff INHALATION DAILY 04/23/18 04/25/18 80 mcg] Fluticasone Nasal [place] [Flonase 1 spray EA NOSTRIL DAILY 04/23/18 04/25/18 Nasal [place]] metFORMIN HCL [Glucophage] 500 mg PO BID 04/23/18 04/25/18 Previous Rx's Medication Instructions Recorded Cyclobenzaprine [Flexeril] 10 mg PO TID PRN #12 tab 02/25/18 Amoxic-Pot Clav 875-125Mg 1 tab PO Q12HR #28 tablet 06/30/18 [Augmentin 875-125] Allergies Allergy/AdvReac Type Severity Reaction Status Date / Time levofloxacin [From Levaquin] Allergy Rash/Hives Verified 06/30/18 11:49 NSAIDS (Non-Steroidal Allergy RENAL Verified 06/30/18 11:49 Anti-Inflamma DISEASE propranolol HCl Allergy Rash/Hives Verified 06/30/18 11:49 [From Inderal LA] ibuprofen [From Motrin] AdvReac RENAL Verified 06/30/18 11:49 DISEASE IRON INFUSION AdvReac Dyspnea Uncoded 06/30/18 11:49 Review of Systems ROS Statement: Those systems with pertinent positive or pertinent negative responses have been documented in the HPI. ROS Other: All systems not noted in ROS Statement are negative. Constitutional: Reports: chills. Denies: fever Eyes: Denies: eye pain ENT: Reports: ear pain, congestion Respiratory: Reports: cough. 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 Hx: anemia, vertigo, History of Any Multi-Drug Resistant Organisms: None Reported Past Surgical History: Cholecystectomy, Hernia Repair, Hysterectomy, Orthopedic Surgery, Tubal Ligation, Uterine Ablation Additional Past Surgical History / Comment(s): NECK FUSION 5-6-7,lumbar shunt wraps around to rt side of abd., arthroscopy left knee x 3; colonoscopy Past Anesthesia/Blood Transfusion Reactions: Motion Sickness, Postoperative Nausea & Vomiting (PONV) Additional Past Anesthesia/Blood Transfusion Reaction / Comment(s): vertigo Past Psychological History: Anxiety, Depression Smoking Status: Former smoker - Past Family History Brother(s) Family Medical History: Cancer Additional Family Medical History / Comment(s): THROAT Mother Family Medical History: AFIB, Cancer Additional Family Medical History / Comment(s): BONE Father Family Medical History: Cancer Additional Family Medical History / Comment(s): Colon CA General Exam Limitations: no limitations General appearance: alert, in no apparent distress Head exam: Present: atraumatic Eye exam: Present: normal appearance ENT exam: Present: normal oropharynx, other (Left TM with mild erythema and bulging. The superior portion may have an old perforation.) Neck exam: Present: normal inspection Respiratory exam: Present: normal lung sounds bilaterally. Absent: respiratory distress, wheezes Cardiovascular Exam: Present: regular rate, normal rhythm GI/Abdominal exam: Present: soft. Absent: tenderness Extremities exam: Present: normal inspection. Absent: pedal edema, calf tenderness Neurological exam: Present: alert Psychiatric exam: Present: normal affect, normal mood Skin exam: Present: normal color Course Vital Signs 06/30/18 11:43 Temperature 98.2 F Pulse Rate 74 Respiratory 18 Rate Blood Pressure 113/82 O2 Sat by Pulse 97 Oximetry Disposition Clinical Impression: Sinusitis, Left otitis media Disposition: HOME SELF-CARE Condition: Stable Instructions: Earache (ED), Sinusitis (ED) Additional Instructions: Please follow-up with primary care physician in the next couple days for recheck. [id number] saline nasal spray. Please also follow-up with ENT. Return for difficulty breathing, worsening or change in symptoms, or other concerns. Prescriptions: Amoxic-Pot Clav 875-125Mg [Augmentin 875-125] 1 tab PO Q12HR #28 tablet Is patient prescribed a controlled substance at d/c from ED?: No Referrals: Kelsey Pederson MD [Primary Care Provider] - 1-2 days Raúl Liu MD [STAFF PHYSICIAN] - 1-2 days Time of Disposition: 12:07
== END 2018-06-30 12:15 | disposition home or self-care (01) ==
LOC: EC 11:29
DX: H66.92 Otitis media, unspecified, left ear (principal); J32.9 Chronic sinusitis, unspecified; J44.9 Chronic obstructive pulmonary disease, unspecified; E11.9 Type 2 diabetes mellitus without complications; K21.9 Gastro-esophageal reflux disease without esophagitis; G47.30 Sleep apnea, unspecified; Z99.89 Dependence on other enabling machines and devices; E07.9 Disorder of thyroid, unspecified; D64.9 Anemia, unspecified; F32.9 Major depressive disorder, single episode, unspecified; F41.9 Anxiety disorder, unspecified; Z86.69 Personal history of other diseases of the nervous system and sense organs; Z87.891 Personal history of nicotine dependence; Z79.51 Long term (current) use of inhaled steroids; Z79.84 Long term (current) use of oral hypoglycemic drugs; Z79.899 Other long term (current) drug therapy; Z88.1 Allergy status to other antibiotic agents; Z88.6 Allergy status to analgesic agent; Z88.8 Allergy status to other drugs, medicaments and biological substances; Z98.2 Presence of cerebrospinal fluid drainage device
CPT/HCPCS: 99282

== ENCOUNTER → 2018-11-15 | Outpatient (CLI) | payer OTHER ==
--- NOTE | 2018-11-15 11:50 | FL ---
EXAMINATION TYPE: FL barium swallow DATE OF EXAM: 11/15/2018 CLINICAL HISTORY: History of Maurice fundoplication with vomiting and reflux. TECHNIQUE: A double contrast esophagram is performed utilizing air and barium. A total of 2 minutes and 9 seconds of fluoroscopic time was utilized during procedure. 15 fluoroscopic images were saved during the examination. COMPARISON: None FINDINGS: The esophagus shows normal motility and emptying into the stomach. No evidence of hiatal h ernia or stricture noted status post Maurice fundoplication. A small distal esophageal diverticulum is present. No significant gastroesophageal reflux was seen during real time performance of this study. Evaluation of the upper abdomen there are diffusely thickened gastric rugal folds noted. IMPRESSION: 1. No recurrent hiatal hernia status post Maurice fundoplication however a small distal esophageal div erticulum is noted. 2. Diffusely thickened gastric rugal folds most commonly related to gastritis.
== END | disposition home or self-care (01) ==
LOC: RADFLWHC 10:34
PROVIDERS: ATTEND Surgery
DX: K22.5 Diverticulum of esophagus, acquired (principal)
CPT/HCPCS: 74220

== ENCOUNTER 2019-03-15 16:32 | Emergency (ER) | payer OTHER ==
--- NOTE | 2019-03-15 17:24 | XR ---
EXAMINATION TYPE: XR chest 2V DATE OF EXAM: 03/15/2019 COMPARISON: 03/11/2015 HISTORY: Headache and nausea TECHNIQUE: Frontal and lateral views of the chest are obtained. FINDINGS: Heart and mediastinum are normal. Lungs are clear. Diaphragm is normal. Bony thorax is int act. Pulmonary vascularity is normal. IMPRESSION: Normal chest. No change.
[2019-03-15] MEDS ORDERED: IPRATROPIUM-ALBUTEROL 3 ML NEB INHALATION STA (17:27)
[2019-03-15] MEDS ORDERED: predniSONE 50 MG TAB PO STA (17:27)
--- NOTE | 2019-03-15 18:17 | ED ---
General Adult HPI - General Chief complaint: Upper Respiratory Infection Stated complaint: Cough Time Seen by Provider: 03/15/19 17:00 Source: patient, RN notes reviewed, old records reviewed Mode of arrival: ambulatory Limitations: no limitations - History of Present Illness Initial comments: 43 year old female patient proceeded chief complaint of cough, sinus congestion, rhinitis for the last week. Patient reports that cough is mostly nonproductive with occasional sputum production. Patient denies any fevers or chills. Reports that she has had some nausea without emesis. Denies any diarrhea. Patient denies any other complaints at this time. Systemic: Pt denies fatigue, fever/chills, rash. Pt denies weakness, night sweats, weight loss. Neuro: Pt denies headache, visual disturbances, syncope or pre-syncope. HEENT: Pt denies ocular discharge or irritation, otalgia, rhinorrhea, pharyngitis or notable lymphadenopathy. Cardiopulmonary: Pt denies chest pain, SOB, heart palpitations, dyspnea on exertion. Abdominal/GI: Pt denies abdominal pain, n/v/d. : Pt denies dysuria, burning w/ urination, frequency/urgency. Denies new onset urinary or bowel incontinence. MSK: Pt denies myalgia, loss of strength or function in extremities. Neuro: Pt denies new onset weakness, paresthesias. - Related Data Home Medications Medication Instructions Recorded Confirmed Acetaminophen Tab [Tylenol] 500 mg PO Q4H PRN 03/13/14 04/25/18 Folic Acid 1 mg PO DAILY 03/13/14 04/25/18 Nitroglycerin Sl Tabs [Nitrostat] 0.4 mg SUBLINGUAL Q5M PRN 03/13/14 04/23/18 Albuterol Inhaler [Ventolin Hfa 2 puff INHALATION RT-Q6H PRN 01/04/15 04/25/18 Inhaler] Citalopram Hydrobromide [CeleXA] 40 mg PO HS 10/26/15 04/25/18 Loratadine [Claritin] 10 mg PO HS 10/26/15 04/25/18 Levothyroxine Sodium [Synthroid] 50 mcg PO MOTUWETHFRSA 03/17/16 04/25/18 Meclizine [Antivert] 12.5 mg PO BID 03/25/16 04/25/18 Gabapentin [Neurontin] 300 mg PO HS 09/02/16 04/25/18 Levothyroxine Sodium [Synthroid] 100 mcg PO PADILLA 09/02/16 04/25/18 Ranitidine HCl 150 mg PO BID 09/02/16 04/25/18 Dicyclomine [Bentyl] 10 mg PO BID 04/19/17 04/25/18 Ergocalciferol [Vitamin D2] 50,000 unit PO SA 04/19/17 04/25/18 Metoclopramide [Reglan] 10 mg PO BID PRN 04/19/17 04/25/18 Omeprazole [PriLOSEC] 40 mg PO AC-BRKFST 04/19/17 04/25/18 Atorvastatin [Lipitor] 20 mg PO HS 04/23/18 04/25/18 Beclomethasone Dipropionate [Qvar 1 puff INHALATION DAILY 04/23/18 04/25/18 80 mcg] Fluticasone Nasal [place] [Flonase 1 spray EA NOSTRIL DAILY 04/23/18 04/25/18 Nasal [place]] metFORMIN HCL [Glucophage] 500 mg PO BID 04/23/18 04/25/18 Previous Rx's Medication Instructions Recorded Cyclobenzaprine [Flexeril] 10 mg PO TID PRN #12 tab 02/25/18 Amoxic-Pot Clav 875-125Mg 1 tab PO Q12HR #28 tablet 06/30/18 [Augmentin 875-125] Albuterol Nebulized [Ventolin 2.5 mg INHALATION Q4H PRN #30 nebu 03/15/19 Nebulized] predniSONE 50 mg PO DAILY #4 tab 03/15/19 Allergies Allergy/AdvReac Type Severity Reaction Status Date / Time levofloxacin [From Levaquin] Allergy Rash/Hives Verified 03/15/19 16:51 NSAIDS (Non-Steroidal Allergy RENAL Verified 03/15/19 16:51 Anti-Inflamma DISEASE propranolol HCl Allergy Rash/Hives Verified 03/15/19 16:51 [From Inderal LA] ibuprofen [From Motrin] AdvReac RENAL Verified 03/15/19 16:51 DISEASE IRON INFUSION AdvReac Dyspnea Uncoded 03/15/19 16:51 Review of Systems ROS Statement: Those systems with pertinent positive or pertinent negative responses have been documented in the HPI. ROS Other: All systems not noted in ROS Statement are negative. 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 Hx: anemia,vertigo History of Any Multi-Drug Resistant Organisms: None Reported Past Surgical History: Cholecystectomy, Hernia Repair, Hysterectomy, Orthopedic Surgery, Tubal Ligation, Uterine Ablation Additional Past Surgical History / Comment(s): NECK FUSION 5-6-7,lumbar shunt wraps around to rt side of abd., arthroscopy left knee x 3; colonoscopy Past Anesthesia/Blood Transfusion Reactions: Motion Sickness, Postoperative Nausea & Vomiting (PONV) Additional Past Anesthesia/Blood Transfusion Reaction / Comment(s): vertigo Past Psychological History: Anxiety, Depression Smoking Status: Former smoker Past Alcohol Use History: None Reported Past Drug Use History: None Reported - Past Family History Brother(s) Family Medical History: Cancer Additional Family Medical History / Comment(s): THROAT Mother Family Medical History: AFIB, Cancer Additional Family Medical History / Comment(s): BONE Father Family Medical History: Cancer Additional Family Medical History / Comment(s): Colon CA General Exam - General Exam Comments Initial Comments: Constitutional: NAD, AOX3, Pt has pleasant affect. HEENT: NC/AT, trachea midline, neck supple, no lymphadenopathy. Posterior pharynx non erythematous, without exudates. External ears appear normal, without discharge. Mucous membranes moist. Eyes PERRLA, EOM intact. There is no scleral icterus. No pallor noted. Cardiopulmonary: RRR, no murmurs, rubs or gallops, no JVD noted. Lungs CTAB in anterior and posterior guerrero. No peripheral edema. Abdominal exam: Abdomen soft and non-distended. Abdomen non-tender to palpation in all 4 quadrants. Bowel sounds active in LLQ. No hepatosplenomegaly. No ecchymosis Neuro: CN II-XII grossly intact. No nuchal rigidity. No raccon eyes, no byrne sign, no hemotympanum. No cervical spinal tenderness. MSK: No posterior calf tenderness bilaterally, homans sign negative bilaterally. Posterior tibialis and radial pulse +2 bilaterally. Sensation intact in upper and lower extremities. Full active ROM in upper and lower extremities, 5/5 stregnth. Limitations: no limitations Course Vital Signs 03/15/19 03/15/19 03/15/19 16:48 18:12 18:20 Temperature 98.3 F Pulse Rate 81 63 65 Respiratory 18 14 16 Rate Blood Pressure 111/70 O2 Sat by Pulse 97 Oximetry Medical Decision Making - Medical Decision Making 43 year old female patient proceeded chief complaint of cough, sinus congestion, rhinitis for the last week. Patient reports that cough is mostly nonproductive with occasional sputum production. Patient denies any fevers or chills. Reports that she has had some nausea without emesis. Denies any diarrhea. Patient denies any other complaints at this time. Vital signs stable, afebrile. Physical exam didn't display acute pathology. Chest x-ray revealed no acute process. Patient likely viral bronchitis like syndrome. Pt will be started on burst steroid treatment and breathing treatments. Case discussed with Dr. Miranda. - Lab Data Lab Results 03/15/19 Range/Units 18:00 Influenza Type A RNA Not Detected (Not Detectd) Influenza Type B (PCR) Not Detected (Not Detectd) Disposition Clinical Impression: Acute bronchitis Disposition: HOME SELF-CARE Condition: Stable Instructions (If sedation given, give patient instructions): Acute Bronchitis (ED) Additional Instructions: Patient to adhere to previously discussed treatment plan and will take medication(s) as directed. Patient to follow up with PCP in 1-2 days. Patient to return to ED if symptoms do not improve. Take Medications as directed. Follow up with primary care provider tomorrow. Return here if condition worsens. Prescriptions: predniSONE 50 mg PO DAILY #4 tab Albuterol Nebulized [Ventolin Nebulized] 2.5 mg INHALATION Q4H PRN #30 nebu PRN Reason: Cough Is patient prescribed a controlled substance at d/c from ED?: No Referrals: Kelsey Pederson MD [Primary Care Provider] - 1-2 days
[2019-03-15 18:52] VITALS: BP 118/65; PULSE 66; RESP 18; TEMP 98.5
== END 2019-03-15 18:45 | disposition home or self-care (01) ==
LOC: EC 16:32
DX: J20.9 Acute bronchitis, unspecified (principal); J44.9 Chronic obstructive pulmonary disease, unspecified; E11.9 Type 2 diabetes mellitus without complications; K21.9 Gastro-esophageal reflux disease without esophagitis; G47.30 Sleep apnea, unspecified; E07.9 Disorder of thyroid, unspecified; F41.9 Anxiety disorder, unspecified; F32.9 Major depressive disorder, single episode, unspecified; Z79.890 Hormone replacement therapy; Z79.84 Long term (current) use of oral hypoglycemic drugs; Z79.51 Long term (current) use of inhaled steroids; Z79.899 Other long term (current) drug therapy; Z88.1 Allergy status to other antibiotic agents; Z88.6 Allergy status to analgesic agent; Z88.8 Allergy status to other drugs, medicaments and biological substances; Z98.1 Arthrodesis status; Z87.891 Personal history of nicotine dependence
CPT/HCPCS: 94640; 87502; 71046; 99284; J7512

== ENCOUNTER → 2019-03-22 | Outpatient (CLI) | payer OTHER ==
[2019-03-22 13:38] VITALS: BP 99/66; PULSE 75; RESP 18; TEMP 98.5; BMI 47.2
--- NOTE | 2019-03-22 14:08 | P.GSHP ---
History of Present Illness H&P Date: 03/22/19 Chief Complaint: abnormal mammogram Doreen is a 43-year-old white female who presents for breast evaluation. She had a routine screening mammogram performed in January 2019. Following this she was recommended to undergo a right breast ultrasound. Right breast ultrasound reve aled a 3.3 cm x 1.5 cm lesion in the right breast. Additionally at the area or position of the right breast was a circumscribed round mass measuring 0.8 x 0.6 cm. The patient was recommended to undergo ultrasound-guided core biopsy of both of these lesions. The patient does not feel any lumps or masses in her breast. She is not having any pain in her breasts. She is not complaining of any nipple discharge. She has not had any infection in her breast or trauma to her breast. Family history: father: colon cancer of this brother: throat cancer at 51 Hormonal History: menarche: 10 , breast fed: no, age at first : 15 hysterectomy at 38, bleeding, did not take ovaries BCP: 2 years hormones: none Past surgical history: 1. Hysterectomy 2. Pseudotumor cerebra shunt in the lower lumbar area 3. arthroscopic surgery 4. ablation and tubal prior to hysterectomy Medical History: 1. DM 2. Pseudotumor cerebra with decreased memory 3. COPD 4. 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) Ears: bilateral: tinnitus - Breasts Breasts: bilateral: as per HPI - Cardiovascular Cardiovascular: Reports high blood pressure, Denies chest pain, Denies shortness of breath - Respiratory Comment: COPD - Gastrointestinal Gastrointestinal: Denies abdominal pain, Denies diarrhea, Denies nausea, Denies vomiting - Genitourinary (Female) Comment: born with only one kidney - Menstruation Menstruation: Reports post hysterectomy - Musculoskeletal Comment: arthritis Musculoskeletal: Reports myalgias - Integumentary Integumentary: Denies pruritus, Denies rash - Neurological Neurological: Reports numbness, Reports weakness - Psychiatric Psychiatric: Reports depression - Endocrine Comment: diabetes, hypothyroid - Hematologic/Lymphatic Comment: none - Allergic/Immunologic Allergic/Immunologic: Reports seasonal allergies Past Medical History Past Medical History: Chest Pain / Angina, COPD, Diabetes Mellitus, GERD/Reflux, GI Bleed, Renal Disease, Sleep Apnea/CPAP/BIPAP, Thyroid Disorder Additional Past Medical History / Comment(s): Hemorrhoids; Pseudotumor brain TUMOR.-has shunt. 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 Hx: anemia,vertigo History of Any Multi-Drug Resistant Organisms: None Reported Past Surgical History: Cholecystectomy, Hernia Repair, Hysterectomy, Orthopedic Surgery, Tubal Ligation, Uterine Ablation Additional Past Surgical History / Comment(s): NECK FUSION 5-6-7,lumbar shunt wr aps around to rt side of abd., arthroscopy left knee x 3; colonoscopy Past Anesthesia/Blood Transfusion Reactions: Motion Sickness, Postoperative Nausea & Vomiting (PONV) Additional Past Anesthesia/Blood Transfusion Reaction / Comment(s): vertigo Past Psychological History: Anxiety, Depression Smoking Status: Former smoker Past Alcohol Use History: None Reported Additional Past Alcohol Use History / Comment(s): QUIT 2015, smoked since age 15, < 1/2ppd Past Drug Use History: None Reported - Past Family History Brother(s) Family Medical History: Cancer Additional Family Medical History / Comment(s): THROAT Mother Family Medical History: AFIB, Cancer Additional Family Medical History / Comment(s): BONE Father Family Medical History: Cancer Additional Family Medical History / Comment(s): Colon CA Medications and Allergies Home Medications Medication Instructions Recorded Confirmed Type Acetaminophen Tab [Tylenol] 500 mg PO Q4H PRN 03/13/14 04/25/18 History Folic Acid 1 mg PO DAILY 03/13/14 04/25/18 History Nitroglycerin Sl Tabs [Nitrostat] 0.4 mg SUBLINGUAL Q5M PRN 03/13/14 04/23/18 History Albuterol Inhaler [Ventolin Hfa 2 puff INHALATION RT-Q6H PRN 01/04/15 04/25/18 History Inhaler] Citalopram Hydrobromide [CeleXA] 40 mg PO HS 10/26/15 04/25/18 History Loratadine [Claritin] 10 mg PO HS 10/26/15 04/25/18 History Levothyroxine Sodium [Synthroid] 50 mcg PO MOTUWETHFRSA 03/17/16 04/25/18 History Meclizine [Antivert] 12.5 mg PO BID 03/25/16 04/25/18 History Gabapentin [Neurontin] 300 mg PO HS 09/02/16 04/25/18 History Levothyroxine Sodium [Synthroid] 100 mcg PO PADILLA 09/02/16 04/25/18 History Ranitidine HCl 150 mg PO BID 09/02/16 04/25/18 History Dicyclomine [Bentyl] 10 mg PO BID 04/19/17 04/25/18 History Ergocalciferol [Vitamin D2] 50,000 unit PO SA 04/19/17 04/25/18 History Metoclopramide [Reglan] 10 mg PO BID PRN 04/19/17 04/25/18 History Omeprazole [PriLOSEC] 40 mg PO AC-BRKFST 04/19/17 04/25/18 History Cyclobenzaprine [Flexeril] 10 mg PO TID PRN #12 tab 02/25/18 04/23/18 Rx Atorvastatin [Lipitor] 20 mg PO HS 04/23/18 04/25/18 History Beclomethasone Dipropionate [Qvar 1 puff INHALATION DAILY 04/23/18 04/25/18 H istory 80 mcg] Fluticasone Nasal Destrehan [Flonase 1 spray EA NOSTRIL DAILY 04/23/18 04/25/18 History Nasal Destrehan] metFORMIN HCL [Glucophage] 500 mg PO BID 04/23/18 04/25/18 History Amoxic-Pot Clav 875-125Mg 1 tab PO Q12HR #28 tablet 06/30/18 Rx [Augmentin 875-125] Albuterol Nebulized [Ventolin 2.5 mg INHALATION Q4H PRN #30 nebu 03/15/19 Rx Nebulized] predniSONE 50 mg PO DAILY #4 tab 03/15/19 Rx Allergies Allergy/AdvReac Type Severity Reaction Status Date / Time levofloxacin [From Levaquin] Allergy Rash/Hives Verified 03/22/19 13:35 NSAIDS (Non-Steroidal Allergy RENAL Verified 03/22/19 13:35 Anti-Inflamma DISEASE propranolol HCl Allergy Rash/Hives Verified 03/22/19 13:35 [From Inderal LA] ibuprofen [From Motrin] AdvReac RENAL Verified 03/22/19 13:35 DISEASE IRON INFUSION AdvReac Dyspnea Uncoded 03/22/19 13:35 Surgical - Exam Vital Signs Temp Pulse Resp BP Pulse Ox 98.5 F 75 18 99/66 97 03/22/19 13:36 03/22/19 13:36 03/22/19 13:36 03/22/19 13:36 03/22/19 13:36 BMI 47.3 - General obese - Eyes normal ocular movement - ENT no hearing loss - Neck trachea midline - Respiratory normal respiratory effort, clear to auscultation - Cardiovascular Rhythm: regular Heart Sounds: normal: S1, S2 - Abdomen Abdomen: soft - Integumentary normal turgor - Musculoskeletal normal gait, normal posture - Psychiatric oriented to time, oriented to person, oriented to place, speech is normal, memory intact Breast examination: Bra 44DD Right breast: Multiple positional exam reveals area of increased fullness in the right breast in the outer lower area, this is approximately 3 cm in size this would correspond with what was seen mammographically and [id number] Right axilla: No adenopathy of concern Left breast: Multi-positional exam fibrocystic changes no dominant masses or nodules of concern Left axilla: Some excoriated skin which may be consistent with fungal infection on the skin fold in the left axilla Results Right breast diagnostic mammogram and ultrasound reports reviewed Assessment and Plan Assessment: Impression: 1. DM 2. Pseudotumor cerebra with decreased memory 3. COPD 4. sleep apnea 5. Radiographic abnormality right breast. Mammogram and ultrasound 6. Fullness right breast outer lower quadrant 7. Fibrocystic breast changes 8. Family history of cancer Plan: 1. Ultrasound-guided core biopsy of 2 areas of concern in the right breast 1 appears to be that which was the palpable abnormality 2. Follow-up after ultrasound-guided core biopsy 3. Medical management of medical conditions I discussed with Doreen and I believe the area that I palpate in the right breast corresponds to one of the ultrasound areas and at which was seen on mammogram. We will see with the core biopsy results and further recommendation to follow this. I've also discussed risk and benefits of ultrasound-guided core biopsy and the patient understands and wishes to proceed. CC: Dr. Pederson
== END ==
LOC: WWCWWP 13:03
PROVIDERS: ATTEND Surgery
DX: Z53.9 Procedure and treatment not carried out, unspecified reason (principal)

== ENCOUNTER → 2019-04-09 | Day surgery (SDC) | payer OTHER ==
[2019-04-09 09:37] VITALS: RESP 16; BMI 47.4
[2019-04-09 11:34] VITALS: BP 101/68; PULSE 73; TEMP 98.1
--- NOTE | 2019-04-09 12:14 | USB ---
EXAMINATION TYPE: US biopsy breast add'l VAD RT, US biopsy breast VAD RT, MG diagnostic mammo RT wo CAD DATE OF EXAM: 04/09/2019 CLINICAL HISTORY: R92.8 ABNORMAL MAMMOGRAM. TECHNIQUE: 2 site ultrasound guided core biopsy of right breast. COMPARISON: Digital screening mammogram dated 01/16/2019 and outside ultrasound of the right breast FINDINGS: The procedure of ultrasound guided core biopsy was explained to the patient. Benefits, alternatives, and risks were discussed. An informed consent was then obtained. Site A (9:00 position-larger 3.1 cm mass): The patient was placed in supine positioning for imaging and for the procedure. The overlying skin was prepped and draped in usual sterile fashion. 10 cc of 1% lidocaine was used as anesthetic into the skin and subcutaneous tissue up to the heterogenous 3.1 cm mass at the 9:00 position in the right breast. Under ultrasound guidance, a 12-gauge vacuum assisted biopsy gun device was used to obtain 5 core samples. Following this, a ribbon-shaped biopsy marker was left in the mass. Site B (smaller 0.8 cm mass at the 9:00 position in zone a of the right breast): The patient was placed in supine positioning for imaging and for the procedure. The overlying skin was prepped and draped in usual sterile fashion. 10 cc of 1% lidocaine was used as anesthetic into the skin and subcutaneous tissue and 7 cc of lidocaine with epinephrine in the deeper subcutaneous tissues up to the smaller 0.8 cm mass at the 9:00 position in the breast. Under ultrasound guidance, a 12-gauge vacuum assisted biopsy gun device was used to obtain 4 core samples. Following this, a wing shaped biopsy marker was left at the site of biopsy. Postprocedure mammogram demonstrates appropriate biopsy marker placement of both biopsy markers. The patient tolerated the procedure well with development of a small hematoma at the second biopsy site in zone a. The patient was kept in the radiology department for short stay after the procedure and then discharged home in stable condition. A third similar-appearing mass also at the 9:00 position was identified on preprocedural imaging. Recommendation for this mass will be made on radiologic/pathologic correlation. This was discussed with the patient. IMPRESSION: Successful 2 site ultrasound guided core biopsy of the right breast, full pathology results to follow. The larger area appears somewhat as an evolving hematoma however the patient denies trauma. A similar third mass is seen also at the 9:00 position in the right breast and recommendation will be made on radiologic/pathologic correlation. Pathology Results: Benign A. RIGHT BREAST, SITE A AT 9:00, BIOPSIES: Fibrocystic spectrum disease. B. RIGHT BREAST, SITE B AT 9:00, BIOPSIES: Sclerosing adenosis/fibroadenoma with fibrocystic disease and focal collagenous spherulosis. Recommendation Follow up ultrasound of the right breast in 6 months. Similar third mass at 9 o'clock on the right breast, 6 month follow up. MTDD
== END ==
LOC: RADUSWWP 09:06
PROVIDERS: ATTEND Surgery
DX: D24.1 Benign neoplasm of right breast (principal); N60.11 Diffuse cystic mastopathy of right breast; N60.21 Fibroadenosis of right breast
CPT/HCPCS: 88305; 77065; 19083; 19084; A4648; J2001

== ENCOUNTER → 2019-04-12 | Outpatient (CLI) | payer OTHER | END | disposition home or self-care (01) | LOC: LABWHC1 14:17 | PROVIDERS: ATTEND Family Medicine | DX: R05 Cough (principal); R50.9 Fever, unspecified | CPT/HCPCS: 87502 ==

== ENCOUNTER → 2019-04-12 | Outpatient (CLI) | payer OTHER ==
--- NOTE | 2019-04-12 16:09 | XR ---
EXAMINATION TYPE: XR chest 2V DATE OF EXAM: 04/12/2019 COMPARISON: Chest x-ray March 15, 2019. HISTORY: Cough. TECHNIQUE: Frontal and lateral views of the chest are obtained. FINDINGS: There is no focal air space opacity, pleural effusion, or pneumothorax seen. The cardiac silhouette size is stable and upper limits of normal in size. The osseous structures are intact. Ch olecystectomy clips noted on lateral view. IMPRESSION: No suspicious acute infiltrate. No significant change from prior.
== END | disposition home or self-care (01) ==
LOC: RADXRMAIN 15:38
PROVIDERS: ATTEND Family Medicine
DX: R50.9 Fever, unspecified (principal); R05 Cough
CPT/HCPCS: 71046

== ENCOUNTER → 2019-04-24 | Outpatient (CLI) | payer OTHER ==
[2019-04-24 14:38] VITALS: BP 113/79; PULSE 78; RESP 18; TEMP 98; BMI 46.5
--- NOTE | 2019-04-24 14:49 | P.PN ---
Subjective Progress Note Date: 04/24/19 Doreen is a 43-year-old white female who presents for breast evaluation. She had a routine screening mammogram performed in January 2019. Following this she was recommended to undergo a right breast ultrasound. Right breast ultrasound revealed a 3.3 cm x 1.5 cm lesion in the right breast. Additionally at the area or position of the right breast was a circumscribed round mass measuring 0.8 x 0.6 cm. The patient was recommended to undergo ultrasound-guided core biopsy of both of these lesions. The patient does not feel any lumps or masses in her breast. She is not having any pain in her breasts. She is not complaining of any nipple discharge. She has not had any infection in her breast or trauma to her breast. Core biopsy was done on 04-09-19. Pathology revelaed fibrocystic disease and a fibroadenoma. Follow up ultrasound of the right breast in 6 months with an exam recommended. Family history: father: colon cancer of this brother: throat cancer at 51 Hormonal History: menarche: 10 , breast fed: no, age at first : 15 hysterectomy at 38, bleeding, did not take ovaries BCP: 2 years hormones: none Past surgical history: 1. Hysterectomy 2. Pseudotumor cerebra shunt in the lower lumbar area 3. arthroscopic surgery 4. ablation and tubal prior to hysterectomy Medical History: 1. DM 2. Pseudotumor cerebra with decreased memory 3. COPD 4. 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) Ears: bilateral: tinnitus - Breasts Breasts: bilateral: as per HPI - Cardiovascular Cardiovascular: Reports high blood pressure, Denies chest pain, Denies shortness of breath - Respiratory Comment: COPD - Gastrointestinal Gastrointestinal: Denies abdominal pain, Denies diarrhea, Denies nausea, Denies vomiting - Genitourinary (Female) Comment: born with only one kidney - Menstruation Menstruation: Reports post hysterectomy - Musculoskeletal Comment: arthritis Musculoskeletal: Reports myalgias - Integumentary Integumentary: Denies pruritus, Denies rash - Neurological Neurological: Reports numbness, Reports weakness - Psychiatric Psychiatric: Reports depression - Endocrine Comment: diabetes, hypothyroid - Hematologic/Lymphatic Comment: none - Allergic/Immunologic Allergic/Immunologic: Reports seasonal allergies Past Medical History Past Medical History: Chest Pain / Angina, COPD, Diabetes Mellitus, GERD/Reflux, GI Bleed, Renal Disease, Sleep Apnea/CPAP/BIPAP, Thyroid Disorder Additional Past Medical History / Comment(s): Hemorrhoids; Pseudotumor brain TUMOR.-has shunt. 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 Hx: anemia,vertigo History of Any Multi-Drug Resistant Organisms: None Reported Past Surgical History: Cholecystectomy, Hernia Repair, Hysterectomy, Orthopedic Surgery, Tubal Ligation, Uterine Ablation Additional Past Surgical History / Comment(s): NECK FUSION 5-6-7,lumbar shunt wraps around to rt side of abd., arthroscopy left knee x 3; colonoscopy Past Anesthesia/Blood Transfusion Reactions: Motion Sickness, Postoperative Nausea & Vomiting (PONV) Additional Past Anesthesia/Blood Transfusion Reaction / Comment(s): vertigo Past Psychological History: Anxiety, Depression Smoking Status: Former smoker Past Alcohol Use History: None Reported Additional Past Alcohol Use History / Comment(s): QUIT 2015, smoked since age 15, < 1/2ppd Past Drug Use History: None Reported - Past Family History Brother(s) Family Medical History: Cancer Additional Family Medical History / Comment(s): THROAT Mother Family Medical History: AFIB, Cancer Additional Family Medical History / Comment(s): BONE Father Family Medical History: Cancer Additional Family Medical History / Comment(s): Colon CA Objective - Vital Signs Vital signs: Vital Signs Temp 98.0 F 04/24/19 14:32 Pulse 78 04/24/19 14:32 Resp 18 04/24/19 14:32 BP 113/79 04/24/19 14:32 Pulse Ox 95 04/24/19 14:32 Intake & Output 04/23/19 04/24/19 04/24/19 18:59 06:59 18:59 Weight 138.799 kg - Exam BMI 46.5 - Constitutional General appearance: Present: obese - EENT Eyes: Present: EOMI ENT: Present: hearing grossly normal - Neck Neck: Present: normal ROM - Respiratory Respiratory: bilateral: CTA - Cardiovascular Rhythm: regular Heart sounds: normal: S1, S2 - Gastrointestinal General gastrointestinal: Present: soft - Musculoskeletal Musculoskeletal: Present: gait normal - Psychiatric Psychiatric: Present: A&O x's 3, appropriate affect, intact judgment & insight - Additional findings Additional findings: Exam: Right breast: Site of biopsy reveals excoriation with approximately a 1.5 x 1.5 cm area of necrosis of the skin this appears to be at the site where Steri- Strips were present There is a hematoma posterior to this which is approximately 3 x 2 cm in size Ther is no active drainage on the exam at this time Assessment and Plan Assessment: Depression: 1. Diabetes 2. Pseudotumor cerebri with decreased memory 3. COPD 4. Sleep apnea 5. Status post core biopsy 2 areas of concern in the right breast 6. Excoriation of the skin near the area of biopsy 7. Hematoma near area of biopsy 8. Family history of cancer 9. Fibrocystic breast changes Plan: 1. Local wound control of the area of prior biopsy 2. Repeat right breast ultrasound in 6 months 3. Medical management of medical conditions Cc: Dr. Myers
== END | disposition home or self-care (01) ==
LOC: WWCWWP 14:20
PROVIDERS: ATTEND Surgery
DX: Z53.9 Procedure and treatment not carried out, unspecified reason (principal)

== ENCOUNTER → 2019-05-02 | Outpatient (CLI) | payer OTHER ==
[2019-05-02 15:53] VITALS: BP 129/86; PULSE 89; RESP 18; TEMP 98.5; BMI 46.5
--- NOTE | 2019-05-02 16:03 | P.PN ---
Progress Note - Text Progress Note Date: 05/02/19 Doreen is a 43-year-old white female status post ultrasound-guided core biopsy at the 9 o'clock position of the right breast at 2 sites. Pathology was benign. The patient however developed an area of excoriation near where the biopsy was performed. This is approximately 3 cm x 2 cm in size with some eschar in the central portion. The patient has had no fever or chills and no erythema of the breast. Physical exam: lateral area of the right breast near core biopsy site; Area of eschar rosa roximately 3 cm x 2 cm No cellulitis no infection Impression: 1. Eschar near area of the right core biopsy 2. No definite infection Plan: 1. Continue present therapy 2. Will continue present conservative managment 3. follow up in two weeks CC: Dr. Pederson
== END | disposition home or self-care (01) ==
LOC: WWCWWP 15:41
PROVIDERS: ATTEND Surgery
DX: Z53.9 Procedure and treatment not carried out, unspecified reason (principal)

== ENCOUNTER 2019-05-08 13:14 | Emergency (ER) | payer OTHER ==
[2019-05-08 14:23] VITALS: TEMP 98.7
[2019-05-08 14:24] VITALS: RESP 18
--- NOTE | 2019-05-08 14:27 | ED ---
Skin/Abscess/FB HPI - General Chief complaint: Skin/Abscess/Foreign Body Stated complaint: Abscess on breast Time Seen by Provider: 05/08/19 13:41 Source: patient, RN notes reviewed, old records reviewed Mode of arrival: ambulatory Limitations: no limitations - History of Present Illness Initial comments: Patient's 43-year-old female with 1 month of right breast wound nonhealing since a biopsy done approximately a month ago.She states she followed with surgeon whom stated it did not appear infected at that time. She reports to foul smelling drainage. Denies fevers or chills. - Related Data Home Medications Medication Instructions Recorded Confirmed Acetaminophen Tab [Tylenol] 500 mg PO Q4H PRN 03/13/14 04/09/19 Folic Acid 1 mg PO DAILY 03/13/14 04/09/19 Albuterol Inhaler [Ventolin Hfa 2 puff INHALATION RT-Q6H PRN 01/04/15 04/09/19 Inhaler] Citalopram Hydrobromide [CeleXA] 40 mg PO HS 10/26/15 04/09/19 Loratadine [Claritin] 10 mg PO HS 10/26/15 04/09/19 Levothyroxine Sodium [Synthroid] 50 mcg PO MOTUWETHFRSA 03/17/16 04/09/19 Meclizine [Antivert] 12.5 mg PO BID 03/25/16 04/09/19 Gabapentin [Neurontin] 300 mg PO HS 09/02/16 04/09/19 Levothyroxine Sodium [Synthroid] 100 mcg PO PADILLA 09/02/16 04/09/19 Ranitidine HCl 150 mg PO BID 09/02/16 04/09/19 Dicyclomine [Bentyl] 10 mg PO BID 04/19/17 04/09/19 Ergocalciferol [Vitamin D2] 50,000 unit PO SA 04/19/17 04/09/19 Omeprazole [PriLOSEC] 40 mg PO AC-BRKFST 04/19/17 04/09/19 Atorvastatin [Lipitor] 20 mg PO HS 04/23/18 04/09/19 Fluticasone Nasal [place] [Flonase 1 spray EA NOSTRIL DAILY 04/23/18 04/09/19 Nasal [place]] metFORMIN HCL [Glucophage] 500 mg PO BID 04/23/18 04/09/19 Ferrous Sulfate [Iron] 325 mg PO DAILY 03/22/19 04/09/19 Furosemide [Lasix] 20 mg PO MOWEFR 03/22/19 04/09/19 Losartan Potassium 50 mg PO DAILY 03/22/19 04/09/19 Potassium Chloride ER [K-Dur 10] 10 meq PO DAILY 03/22/19 04/09/19 Tamsulosin [Flomax] 0.4 mg PO DAILY 03/22/19 04/09/19 rOPINIRole HCL [Requip] 0.5 mg PO HS 03/22/19 04/09/19 Previous Rx's Medication Instructions Recorded Albuterol Nebulized [Ventolin 2.5 mg INHALATION Q4H PRN #30 nebu 03/15/19 Nebulized] Cephalexin [Keflex] 500 mg PO Q8HR #21 cap 05/08/19 Mupirocin 2% Oint [Bactroban 2% 1 applic TOPICAL TID #60 gm 05/08/19 Oint] Allergies Allergy/AdvReac Type Severity Reaction Status Date / Time levofloxacin [From Levaquin] Allergy Rash/Hives Verified 05/08/19 13:22 NSAIDS (Non-Steroidal Allergy RENAL Verified 05/08/19 13:22 Anti-Inflamma DISEASE propranolol HCl Allergy Rash/Hives Verified 05/08/19 13:22 [From Inderal [place]] ibuprofen [From Motrin] AdvReac RENAL Verified 05/08/19 13:22 DISEASE IRON INFUSION AdvReac Dyspnea Uncoded 05/08/19 13:22 Review of Systems ROS Statement: Those systems with pertinent positive or pertinent negative responses have been documented in the HPI. ROS Other: All systems not noted in ROS Statement are negative. 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 Hx: anemia,vertigo History of Any Multi-Drug Resistant Organisms: None Reported Past Surgical History: Cholecystectomy, Hernia Repair, Hysterectomy, Orthopedic Surgery, Tubal Ligation, Uterine Ablation Additional Past Surgical History / Comment(s): NECK FUSION 5-6-7,lumbar shunt wraps around to rt side of abd., arthroscopy left knee x 3; colonoscopy. left breast stereo benign-2013. Past Anesthesia/Blood Transfusion Reactions: Motion Sickness, Postoperative Nausea & Vomiting (PONV) Additional Past Anesthesia/Blood Transfusion Reaction / Comment(s): vertigo Past Psychological History: Anxiety, Depression Smoking Status: Current every day smoker Past Alcohol Use History: Rare Past Drug Use History: None Reported - Past Family History Brother(s) Family Medical History: Cancer Additional Family Medical History / Comment(s): THROAT Mother Family Medical History: AFIB, Cancer Additional Family Medical History / Comment(s): BONE Father Family Medical History: Cancer Additional Family Medical History / Comment(s): Colon CA General Exam - General Exam Comments Initial Comments: 43 year old female, no distres. Limitations: no limitations General appearance: alert, in no apparent distress Head exam: Present: atraumatic, normocephalic, normal inspection Eye exam: Present: normal appearance, PERRL, EOMI. Absent: scleral icterus, conjunctival injection, periorbital swelling ENT exam: Present: normal exam, mucous membranes moist Neck exam: Present: normal inspection. Absent: tenderness, meningismus, lymphadenopathy Respiratory exam: Present: normal lung sounds bilaterally, other (2cm by 2cm erythem a draining wound over 9 oclock position of R breast from biopsy. Concern for cellulitis. ). Absent: respiratory distress, wheezes, rales, rhonchi, stridor Cardiovascular Exam: Present: regular rate, normal rhythm, normal heart sounds. Absent: systolic murmur, diastolic murmur, rubs, gallop, clicks GI/Abdominal exam: Present: soft, normal bowel sounds. Absent: distended, tenderness, guarding, rebound, rigid Back exam: Present: normal inspection Neurological exam: Present: alert, oriented X3, CN II-XII intact Course Vital Signs 05/08/19 05/08/19 05/08/19 13:19 13:22 14:22 Temperature 98.3 F 98.7 F Pulse Rate 73 67 67 Respiratory 18 20 18 Rate Blood Pressure 110/70 121/81 121/81 O2 Sat by Pulse 98 99 100 Oximetry 05/08/19 05/08/19 15:00 16:00 Temperature Pulse Rate 61 Respiratory 18 Rate Blood Pressure 124/74 121/81 O2 Sat by Pulse 97 Oximetry Medical Decision Making - Medical Decision Making 43 year old female for R breast infection and cellulitis one month post biopsy. Wound culture completed. US completed and verbal report from Radiologist and US tech stated no deeper abscess, soft tissue swelling concern for only cellulitis. Discussed placing patient on antibiotic cream and oral medication. Discussed follow up with surgeon. Disposition Clinical Impression: Cellulitis of right breast Disposition: HOME SELF-CARE Condition: Good Instructions (If sedation given, give patient instructions): Cellulitis (ED) Additional Instructions: Please use medication as discussed. Please follow up with family doctor if symptoms have not improved over the next two days. Please return to the emergency room if your symptoms increase or worsen or for any other concerns. Follow-up with breast surgeon as well. Take antibiotics as prescribed do not miss dose. Prescriptions: Mupirocin 2% Oint [Bactroban 2% Oint] 1 applic TOPICAL TID #60 gm Cephalexin [Keflex] 500 mg PO Q8HR #21 cap Is patient prescribed a controlled substance at d/c from ED?: No Referrals: Kelsey Pederson MD [Primary Care Provider] - 1-2 days Time of Disposition: 15:41
[2019-05-08] MEDS ORDERED: CEPHALEXIN 500MG STARTER PACK 4 CAP BTL PO STA (15:41)
[2019-05-08 15:57] VITALS: PULSE 61
[2019-05-08 16:00] VITALS: BP 121/81
[2019-05-08] MEDS ORDERED: MUPIROCIN 2% OINT 22 GM TUBE TOPICAL SCH (16:00)
--- NOTE | 2019-05-09 08:21 | USB ---
Reason for exam: clinical finding. History: Benign US biopsy breast VAD RT of the right breast, April 09, 2019. Benign US biopsy breast add'l VAD RT of the right breast, April 09, 2019. US Breast Limited RT Right limited breast ultrasound including focal area of concern, retroareolar and axilla demonstrates a 0.6 x 0.4 x 0.6cm hypoechoic lesion at o'clock, previously biopsied, a 0.4 x 0.3 x 0.5cm hypoechoic lesion at 9 o'clock and a 4.2 x 1.9 x 3.6cm solid lesion at 8/9 o'clock, previously biopsied. No abscess is seen. Focal subcutaneous edema within the skin at 8 o'clock. Cellulitis most commonly. ASSESSMENT: Suspicious, BI-RAD 4 RECOMMENDATION: Surgical consultation of the right breast. Manage on a clinical basis with regard to focal edema in the skin at 8 o'clock, condider cellulitis. No abscess.
== END 2019-05-08 16:01 | disposition home or self-care (01) ==
LOC: EC 13:14
DX: N61.0 Mastitis without abscess (principal); Q60.0 Renal agenesis, unilateral; J44.9 Chronic obstructive pulmonary disease, unspecified; E11.9 Type 2 diabetes mellitus without complications; K21.9 Gastro-esophageal reflux disease without esophagitis; G47.30 Sleep apnea, unspecified; E07.9 Disorder of thyroid, unspecified; D64.9 Anemia, unspecified; F32.9 Major depressive disorder, single episode, unspecified; F41.9 Anxiety disorder, unspecified; F17.200 Nicotine dependence, unspecified, uncomplicated; Z88.1 Allergy status to other antibiotic agents; Z88.6 Allergy status to analgesic agent; Z88.8 Allergy status to other drugs, medicaments and biological substances; Z79.51 Long term (current) use of inhaled steroids; Z79.84 Long term (current) use of oral hypoglycemic drugs; Z79.890 Hormone replacement therapy; Z79.899 Other long term (current) drug therapy; Z86.011 Personal history of benign neoplasm of the brain; Z96.89 Presence of other specified functional implants; Z99.89 Dependence on other enabling machines and devices; Z98.890 Other specified postprocedural states
CPT/HCPCS: 87070; 87205; 99284

== ENCOUNTER 2019-05-11 11:12 | Emergency (ER) | payer OTHER ==
[2019-05-11 11:17] VITALS: TEMP 97.9
[2019-05-11] MEDS ORDERED: ONDANSETRON 4 MG/2 ML VIAL IVP STA (11:29)
[2019-05-11] MEDS ORDERED: SODIUM CHLORIDE 0.9% 1,000 ML IV STA (11:29)
--- NOTE | 2019-05-11 11:30 | ED ---
Skin/Abscess/FB HPI - General Chief complaint: Skin/Abscess/Foreign Body Stated complaint: infection on breast-revisit Time Seen by Provider: 05/11/19 11:18 Source: patient Mode of arrival: ambulatory Limitations: no limitations - History of Present Illness Initial comments: Patient is a 43-year-old female presenting to the emergency Department with com plaints of a nonhealing wound on her right breast. Patient states she had a biopsy performed approximately one month ago and states she has been having troubles with the wound healing. Patient was in the ER 3 days ago for same complaint and did have an ultrasound performed that showed no signs of an abscess, just cellulitis. Wound culture was also performed and culture was negative. Patient was started on Keflex as well as topical antibiotic. Patient feels like the wound is not improving and now she started having nausea since yesterday. Patient also reports a low-grade fever yesterday. Patient states she spoke with her PCP Dr. Parker yesterday and stated that if she does not report improvement today to come back to the ER. Patient has follow-up with Dr. Jan Cedeno in 5 days. Patient denies any fever, chills today. Patient denies any vomiting, diarrhea. Patient has no other complaints at this time. Upon arrival to the ER, vital signs are stable, afebrile. - Related Data Home Medications Medication Instructions Recorded Confirmed Acetaminophen Tab [Tylenol] 500 mg PO Q4H PRN 03/13/14 04/09/19 Folic Acid 1 mg PO DAILY 03/13/14 04/09/19 Albuterol Inhaler [Ventolin Hfa 2 puff INHALATION RT-Q6H PRN 01/04/15 04/09/19 Inhaler] Citalopram Hydrobromide [CeleXA] 40 mg PO HS 10/26/15 04/09/19 Loratadine [Claritin] 10 mg PO HS 10/26/15 04/09/19 Levothyroxine Sodium [Synthroid] 50 mcg PO MOTUWETHFRSA 03/17/16 04/09/19 Meclizine [Antivert] 12.5 mg PO BID 03/25/16 04/09/19 Gabapentin [Neurontin] 300 mg PO HS 09/02/16 04/09/19 Levothyroxine Sodium [Synthroid] 100 mcg PO PADILLA 09/02/16 04/09/19 Ranitidine HCl 150 mg PO BID 09/02/16 04/09/19 Dicyclomine [Bentyl] 10 mg PO BID 04/19/17 04/09/19 Ergocalciferol [Vitamin D2] 50,000 unit PO SA 04/19/17 04/09/19 Omeprazole [PriLOSEC] 40 mg PO AC-BRKFST 04/19/17 04/09/19 Atorvastatin [Lipitor] 20 mg PO HS 04/23/18 04/09/19 Fluticasone Nasal [place] [Flonase 1 spray EA NOSTRIL DAILY 04/23/18 04/09/19 Nasal [place]] metFORMIN HCL [Glucophage] 500 mg PO BID 04/23/18 04/09/19 Ferrous Sulfate [Iron] 325 mg PO DAILY 03/22/19 04/09/19 Furosemide [Lasix] 20 mg PO MOWEFR 03/22/19 04/09/19 Losartan Potassium 50 mg PO DAILY 03/22/19 04/09/19 Potassium Chloride ER [K-Dur 10] 10 meq PO DAILY 03/22/19 04/09/19 Tamsulosin [Flomax] 0.4 mg PO DAILY 03/22/19 04/09/19 rOPINIRole HCL [Requip] 0.5 mg PO HS 03/22/19 04/09/19 Previous Rx's Medication Instructions Recorded Albuterol Nebulized [Ventolin 2.5 mg INHALATION Q4H PRN #30 nebu 03/15/19 Nebulized] Cephalexin [Keflex] 500 mg PO Q8HR #21 cap 05/08/19 Mupirocin 2% Oint [Bactroban 2% 1 applic TOPICAL TID #60 gm 05/08/19 Oint] Allergies Allergy/AdvReac Type Severity Reaction Status Date / Time levofloxacin [From Levaquin] Allergy Rash/Hives Verified 05/11/19 11:17 NSAIDS (Non-Steroidal Allergy RENAL Verified 05/11/19 11:17 Anti-Inflamma DISEASE propranolol HCl Allergy Rash/Hives Verified 05/11/19 11:17 [From Inderal LA] ibuprofen [From Motrin] AdvReac RENAL Verified 05/11/19 11:17 DISEASE IRON INFUSION AdvReac Dyspnea Uncoded 05/08/19 13:22 Review of Systems ROS Statement: Those systems with pertinent positive or pertinent negative responses have been documented in the HPI. ROS Other: All systems not noted in ROS Statement are negative. 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 Hx: a nemia,vertigo History of Any Multi-Drug Resistant Organisms: None Reported Past Surgical History: Cholecystectomy, Hernia Repair, Hysterectomy, Orthopedic Surgery, Tubal Ligation, Uterine Ablation Additional Past Surgical History / Comment(s): NECK FUSION 5-6-7,lumbar shunt wraps around to rt side of abd., arthroscopy left knee x 3; colonoscopy. left breast stereo benign-2013. Past Anesthesia/Blood Transfusion Reactions: Motion Sickness, Postoperative Nausea & Vomiting (PONV) Additional Past Anesthesia/Blood Transfusion Reaction / Comment(s): vertigo Past Psychological History: Anxiety, Depression Smoking Status: Current every day smoker Past Alcohol Use History: Rare Past Drug Use History: None Reported - Past Family History Brother(s) Family Medical History: Cancer Additional Family Medical History / Comment(s): THROAT Mother Family Medical History: AFIB, Cancer Additional Family Medical History / Comment(s): BONE Father Family Medical History: Cancer Additional Family Medical History / Comment(s): Colon CA General Exam - General Exam Comments Initial Comments: GENERAL: Well-appearing, well-nourished and in no acute distress. HEAD: Atraumatic, normocephalic. EYES: Pupils equal round and reactive to light, extraocular movements intact, sclera anicteric, conjunctiva are normal. ENT: Nares patent, oropharynx clear without exudates. Moist mucous membranes. NECK: Normal range of motion, supple without lymphadenopathy or JVD. LUNGS: Breath sounds clear to auscultation bilaterally and equal. No wheezes rales or rhonchi. HEART: Regular rate and rhythm without murmurs, rubs or gallops. ABDOMEN: Soft, nontender, normoactive bowel sounds. No guarding, no rebound. No masses appreciated. EXTREMITIES: Normal range of motion, no pitting or edema. No clubbing or cyanosis. PSYCH: Normal mood, normal affect. SKIN: Warm, Dry, normal turgor, no rashes. Patient has a 2 cm x 2 cm open round lesion on the right breast at approximately the 8 to 9 o'clock position. There is some very mild surrounding erythema, no active drainage. There is no fluctuance or induration noted underneath the wound. Limitations: no limitations Course Vital Signs 05/11/19 05/11/19 11:15 14:04 Temperature 97.9 F 97.9 F Pulse Rate 75 67 Respiratory 16 18 Rate Blood Pressure 136/81 130/74 O2 Sat by Pulse 97 98 Oximetry Medical Decision Making - Medical Decision Making Patient is a 43-year-old female presenting with an open wound to the right breast secondary to breast biopsy performed 1 month ago. Patient was seen in the ER 3 days ago for same complaint and was started on Keflex and ointment. Patient's breast ultrasound reveals no signs of an abscess and wound culture came back negative. Exam of the wound today reveals no sign of worsening cellulitis. There is no surrounding erythema, induration, fluctuance noticed. There is no active drainage. Patient's lab work shows no signs of acute infection. It was discussed with patient that she should continue with the oral antibiotics and follow up with her PCP or Dr. Jan Cedeno on Monday. An attempt was made to contact her PCP at the request of the patient, however the patient did not want to wait for the call back. Patient is stable for discharge at this time. Return parameters were discussed with the patient she verbalized understanding. Case discussed with Dr. Ribera. - Lab Data Result diagrams: 05/11/19 11:42 05/11/19 11:42 Lab Results 05/11/19 05/11/19 Range/Units 11:42 11:42 WBC 11.4 H (3.8-10.6) k/uL RBC 4.56 (3.80-5.40) m/uL Hgb 13.5 (11.4-16.0) gm/dL Hct 40.7 (34.0-46.0) % MCV 89.2 (80.0-100.0) fL MCH 29.5 (25.0-35.0) pg MCHC 33.1 (31.0-37.0) g/dL RDW 13.0 (11.5-15.5) % Plt Count 298 (150-450) k/uL Neutrophils % 73 % Lymphocytes % 20 % Monocytes % 3 % Eosinophils % 2 % Basophils % 1 % Neutrophils # 8.4 H (1.3-7.7) k/uL Lymphocytes # 2.2 (1.0-4.8) k/uL Monocytes # 0.4 (0-1.0) k/uL Eosinophils # 0.2 (0-0.7) k/uL Basophils # 0.1 (0-0.2) k/uL Sodium 141 (137-145) mmol/L Potassium 4.4 (3.5-5.1) mmol/L Chloride 107 (98-107) mmol/L Carbon Dioxide 27 (22-30) mmol/L Anion Gap 7 mmol/L BUN 12 (7-17) mg/dL Creatinine 1.06 H (0.52-1.04) mg/dL Est GFR (CKD-EPI)AfAm 74 (>60 ml/min/1.73 sqM) Est GFR (CKD-EPI)NonAf 64 (>60 ml/min/1.73 sqM) Glucose 115 H (74-99) mg/dL Calcium 9.6 (8.4-10.2) mg/dL Total Bilirubin 0.4 (0.2-1.3) mg/dL AST 26 (14-36) U/L ALT 29 (9-52) U/L Alkaline Phosphatase 109 (38-126) U/L Total Protein 6.8 (6.3-8.2) g/dL Albumin 4.1 (3.5-5.0) g/dL Disposition Clinical Impression: Unspecified open wound of right breast, sequela Disposition: HOME SELF-CARE Condition: Stable Instructions (If sedation given, give patient instructions): Acute Wound Care (ED) Additional Instructions: Please return to the Emergency Department if symptoms worsen or any other concerns. Follow-up with Dr. Jan Cedeno or PCP if symptoms persist. Is patient prescribed a controlled substance at d/c from ED?: No Referrals: Kelsey Pederson MD [Primary Care Provider] - 1-2 days Nedra De Jesus MD [STAFF PHYSICIAN] - 1-2 days
[2019-05-11 12:00] LABS: Basophils # (A) 0.1 k/uL (0-0.2); Basophils % (A) 1 %; Eosinophils # (A) 0.2 k/uL (0-0.7); Eosinophils % (A) 2 %; HCT 40.7 % (34.0-46.0); HGB 13.5 gm/dL (11.4-16.0); Lymphocytes # (A) 2.2 k/uL (1.0-4.8); Lymphocytes % (A) 20 %; MCH 29.5 pg (25.0-35.0); MCHC 33.1 g/dL (31.0-37.0); MCV 89.2 fL (80.0-100.0); Mean Platelet Volume 7.8; Monocytes # (A) 0.4 k/uL (0-1.0); Monocytes % (A) 3 %; Neutrophils # (A) 8.4 k/uL (1.3-7.7); Neutrophils % (A) 73 %; Platelet Count 298 k/uL (150-450); RBC 4.56 m/uL (3.80-5.40); WBC 11.4 k/uL (3.8-10.6)
[2019-05-11 12:13] LABS: Albumin 4.1 g/dL (3.5-5.0); Calcium 9.6 mg/dL (8.4-10.2); Potassium 4.4 mmol/L (3.5-5.1); Total Bilirubin 0.4 mg/dL (0.2-1.3); Total Protein 6.8 g/dL (6.3-8.2)
[2019-05-11 14:05] VITALS: BP 130/74; PULSE 67; RESP 18
== END 2019-05-11 14:05 | disposition home or self-care (01) ==
LOC: EC 11:12
DX: S21.001S Unspecified open wound of right breast, sequela (principal); T81.89XA Other complications of procedures, not elsewhere classified, initial encounter; J44.9 Chronic obstructive pulmonary disease, unspecified; I25.2 Old myocardial infarction; E11.9 Type 2 diabetes mellitus without complications; K21.9 Gastro-esophageal reflux disease without esophagitis; G47.30 Sleep apnea, unspecified; E07.9 Disorder of thyroid, unspecified; Q60.0 Renal agenesis, unilateral; F32.9 Major depressive disorder, single episode, unspecified; F41.9 Anxiety disorder, unspecified; F17.200 Nicotine dependence, unspecified, uncomplicated; Z79.51 Long term (current) use of inhaled steroids; Z79.890 Hormone replacement therapy; Z79.84 Long term (current) use of oral hypoglycemic drugs; Z79.899 Other long term (current) drug therapy; Z88.6 Allergy status to analgesic agent; Z88.1 Allergy status to other antibiotic agents; Z88.8 Allergy status to other drugs, medicaments and biological substances; Z87.19 Personal history of other diseases of the digestive system; Z99.89 Dependence on other enabling machines and devices; X58.XXXS Exposure to other specified factors, sequela
CPT/HCPCS: 36415; 80053; 85025; 96374; 96361; 99283; J2405

== ENCOUNTER → 2019-05-16 | Outpatient (CLI) | payer OTHER ==
[2019-05-16 12:09] VITALS: BP 122/85; PULSE 78; RESP 18; TEMP 98.7; BMI 46.5
--- NOTE | 2019-05-16 12:54 | P.PN ---
Subjective Progress Note Date: 05/16/19 Principal diagnosis: Ultrasound-guided core biopsy of the right breast/abdominal pain Doreen is a 43-year-old white female who underwent ultrasound-guided core biopsy of the right breast at 2 sites on [id number]. Pathology at site A revealed fibrocystic spectrum disease, and pathology at site B revealed sclerosing adenosis, fibroadenoma with fibrocystic disease and focal collagenous spherulosis. The patient developed an area of excoriation at the biopsy site and was treated after being seen in the ER about a week ago. She had been seen in the emergency room secondary to abdominal pain and diarrhea. At that time approximately one week ago she was started on the Keflex from the ER. She continues to have diarrhea and abdominal discomfort. She is having multiple bowel movements per day. It is watery in nature. There is no blood noted in the diarrhea. She has not had any fever but does feel chilled at times. She is not complaining of any erythema of the breast. Objective - Vital Signs Vital signs: Vital Signs Temp 98.7 F 05/16/19 12:05 Pulse 78 05/16/19 12:05 Resp 18 05/16/19 12:05 BP 122/85 05/16/19 12:05 Pulse Ox 94 L 05/16/19 12:05 Intake & Output 05/15/19 05/16/19 05/16/19 18:59 06:59 18:59 Weight 138.799 kg - Exam BMI 46.5 - Constitutional General appearance: Present: obese - EENT Eyes: Present: EOMI ENT: Present: hearing grossly normal - Neck Neck: Present: normal ROM - Respiratory Respiratory: bilateral: CTA - Cardiovascular Rhythm: regular Heart sounds: normal: S1, S2 - Gastrointestinal Gastrointestinal Comment(s): no guarding or rebound, normal bowel sounds General gastrointestinal: Present: soft - Integumentary Integumentary Comment(s): Right breast: The area of biopsy site excoriation is approximately 2 cm x 2 cm. This is decreased from 3 cm x 2 cm in size The patient has no eschar which would require debridement The base is clean and granulating Assessment and Plan Assessment: Impression: 1. 2 by 2 cm area of granulating tissue near the biopsy site where the needle was inserted this is healing without evidence of infection at the present time 2. Patient has developed abdominal discomfort and diarrhea 3. Patient has been on Keflex. This is being stopped. Plan: 1. DC antibiotics 2. Stool for C. diff 3. Continue local wound care of the breast wound 4. Follow-up in 2 week 5. probiotics 6. appt. Dr. Pederson 7. CBC with diff 25 minutes CC: DR. Pederson
[2019-05-16 14:01] LABS: Basophils # (A) 0.1 k/uL (0-0.2); Basophils % (A) 1 %; Eosinophils # (A) 0.2 k/uL (0-0.7); Eosinophils % (A) 2 %; HCT 42.5 % (34.0-46.0); Lymphocytes # (A) 3.5 k/uL (1.0-4.8); Lymphocytes % (A) 26 %; MCH 29.8 pg (25.0-35.0); MCHC 32.9 g/dL (31.0-37.0); MCV 90.5 fL (80.0-100.0); Mean Platelet Volume 6.9; Monocytes # (A) 0.5 k/uL (0-1.0); Monocytes % (A) 4 %; Neutrophils # (A) 9.4 k/uL (1.3-7.7); Neutrophils % (A) 68 %; Platelet Count 316 k/uL (150-450); RDW 12.8 % (11.5-15.5); WBC 13.8 k/uL (3.8-10.6)
== END | disposition home or self-care (01) ==
LOC: WWCWWP 11:55
PROVIDERS: ATTEND Surgery
DX: R19.7 Diarrhea, unspecified (principal)
CPT/HCPCS: 85025

== ENCOUNTER → 2019-06-12 | Outpatient (CLI) | payer OTHER ==
--- NOTE | 2019-06-12 13:40 | CT ---
EXAMINATION TYPE: CT sinus wo con DATE OF EXAM: 06/12/2019 COMPARISON: None HISTORY: Sinusitis, mastoiditis CT DLP: 628.7 mGycm CONTRAST: 0 mL of Isovue 300 The paranasal sinuses are examined in the axial plane at 2 mm thick sections. Reconstructed images i n the coronal plane were obtained. Findings: The maxillary sinuses are clear. The ethmoid air cells are clear. The sphenoid sinuses are clear. The frontal sinuses are clear. The septum is evaluated. There is septal deviation to the left. The ostiomeatal units are patent. Portions of the mastoid air cells are included within the [id number]. There is near complete opaci fication of the bilateral mastoid air cells. No septal destruction is evident. Small amount fluid may be within the middle ears bilaterally. The attics appear opacified, more so on the left. IMPRESSIONS: 1. Normal paranasal sinuses. 2. Bilateral mastoiditis. 3. There is fluid within the middle ears bilaterally. Otitis media should be considered.
--- NOTE | 2019-06-12 17:12 | CT ---
EXAMINATION TYPE: CT iac wo con DATE OF EXAM: 06/12/2019 COMPARISON: None HISTORY: Sinusitis, mastoiditis CT DLP: 150 mGycm. Automated Exposure Control for Dose Reduction was Utilized. TECHNIQUE: CT scan of internal auditory canal is performed without contrast, thin cut axial images ar e obtained, coronal reformatted images are also reviewed. FINDINGS: The external auditory canals are patent bilaterally. Mastoid air cells show no evidence of abnormal opacification bilaterally. The middle ear ossicles are symmetric and unremarkable. There i s fluid within the bilateral adnexa and into the middle ears. Fluid appears to surround the incus and malleus. The scutum is preserved bilaterally. The cochlea and the semicircular canals are symmetric and unremarkable. There is fluid filling the bilateral mastoid air cells. No septal destruction is identified. Clinical correlation recommended for bilateral mastoiditis. Internal auditory canals appear unremarkable without expansion or erosion. Temporomandibular joints a re maintained bilaterally. Nasal sinuses are reported separately. IMPRESSION: 1. Findings compatible with bilateral mastoiditis. 2. Clinical correlation recommended for otitis media bilaterally
== END | disposition home or self-care (01) ==
LOC: RADCTMAIN 11:46
PROVIDERS: ATTEND Otolaryngology
DX: H70.93 Unspecified mastoiditis, bilateral (principal)
CPT/HCPCS: 70480; 70486

== ENCOUNTER → 2019-08-13 | Outpatient (CLI) | payer OTHER ==
--- NOTE | 2019-08-13 18:21 | CONS ---
CONSULTATION REASON FOR CONSULTATION: Sleep apnea. This is a 43-year-old morbidly obese female patient with a diagnosis of obstructive sleep apnea. Diagnosis was established at the sleep center in [facility]. The patient is coming in to establish herself in our sleep center. She has had a BiPAP machine that she has been utilizing for the past few years. She has a BiPAP in the mode at the pressure of 18/14 cm of water and she is also using a Mirage Quattro full-face mask. She is very happy with the treatment. She used to weigh around 325 pounds and currently she is down to 294. She is trying to lose weight. I checked her compliance data on her BiPAP unit, and the patient has been utilizing the BiPAP every night without any interruption. Her BiPAP use for more than 4 hours is 100%, averaging around 9.2 hours of BiPAP use per night with a leak of 47 L/minute. Tidal volume is at 520 with a leak of 17 L/minute and AHI is down to 2. The patient has an Davilla score of 13. She is trying to lose some more weight. She has no complaints. She is seeking refills on her supplies, including a new full-face mask. PAST MEDICAL HISTORY: 1. Obstructive sleep apnea. 2. Obesity. 3. Diabetes mellitus. 4. Pseudotumor cerebri, status post lumboperitoneal shunt. 5. Hypothyroidism. 6. Acid reflux. PAST SURGICAL HISTORY: Past surgical history includes: 1. Shunt between the lower spine and the peritoneum for pseudotumor cerebri. 2. Hysterectomy. 3. Tubes in the ears. 4. Cholecystectomy. 5. Left knee arthroscopy. 6. Plantar fasciitis. 7. Tubal ligation. 8. Maurice fundoplication. OUTPATIENT MEDICATION: Outpatient medications include: 1. Lipitor 20 daily. 2. Citalopram 40 daily. 3. Dicyclomine 10 mg p.o. daily. 4. Pepcid 20 mg p.o. daily. 5. Folic acid 1 mg p.o. daily. 6. Flonase 50 mcg 2 sprays each nostril twice a day. 7. Lasix 20 mg p.o. daily. 8. Gabapentin 300 mg p.o. daily. 9. Levothyroxine 50 mcg p.o. daily. 10.Loratadine 10 mg p.o. daily. 11.Meclizine 12.5 mg on a p.r.n. basis. 12.Losartan 25 mg p.o. daily. 13.Metformin 1 gram at bedtime. 14.Omeprazole 20 mg p.o. daily. 15.Potassium 10 mEq p.o. daily. 16.Vitamin D2 1.25 mg 1 tablet every other Monday. SOCIAL HISTORY: The patient is a half a pack a day smoker. No history of alcoholism. No history of IV drugs. FAMILY HISTORY: Negative for sleep apnea. OCCUPATIONAL HISTORY: The patient is currently disabled. 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 REVIEW OF SYSTEMS: Fourteen-point review of systems was done. Positive findings were all mentioned above in the history of present illness. Her snoring has subsided while being on BiPAP treatment. Excessive fatigue and sleepiness are also improved. No insomnia. No choking or gasping sensation. No grinding of the teeth. No sleepwalking or sleeptalking. No dryness in the mouth. No anxiety or panic attacks. No palpitations. No heartburn. PHYSICAL EXAMINATION: VITAL SIGNS: Her current vitals are as follows: blood pressure 117/83, pulse 77, respirations 16, temperature 98.0, saturation 96% on room air and BMI is 45.8. Davilla score is 13. Neck size 17-1/2. Height is 5 feet 7 inches, weight is 294. GENERAL APPEARANCE: Calm, comfortable. HEAD: Atraumatic, normocephalic. NECK: Supple. No goiter or neck masses. Mallampati class IV. LUNGS: Clear to auscultation. HEART: Heart sounds are regular rate and rhythm. Normal S1, S2. No S3, S4. No murmurs. ABDOMEN: Soft, nontender. No organomegaly. EXTREMITIES: No edema. No cyanosis or clubbing. NEUROLOGIC: Awake and alert. No focal neurological deficit. PSYCHIATRIC: Negative for anxiety or depression. IMPRESSION: 1. Obstructive sleep apnea, treated with BiPAP at a pressure of 18/14 cm of water. The patient is well treated and compliant, with excellent clinical response and compliance. 2. Obesity with interval weight loss. Current BMI is 45.8. 3. Chronic fatigue and sleepiness. Davilla score is 13; probably related to other comorbidities other than sleep apnea. 4. History of pseudotumor cerebri. 5. Diabetes mellitus. 6. Hypothyroidism. 7. Acid reflux. PLAN: 1. Encourage further weight loss. 2. Continue BiPAP therapy at the same pressure of 18/14 cm of water, with the possibility of lowering the pressure at a later stage as the patient continues to lose some more weight. 3. Keep the full-face mask and switch this patient to an AirFit F20 small size with silent elbow. 4. Add a humidity level of 4. 5. Add tubing at a temperature of 72 degrees Fahrenheit. 6. Refill all of the supplies. 7. See me back in a year's time in followup. It will be also useful to retrieve the patient's original sleep study that was done at [facility]. MMAVA / KATHERINEN: [id number] /
== END | disposition home or self-care (01) ==
LOC: SLEEP 13:12
PROVIDERS: ATTEND Internal Medicine Critical Care Medicine
DX: G47.33 Obstructive sleep apnea (adult) (pediatric) (principal); E66.9 Obesity, unspecified; E11.9 Type 2 diabetes mellitus without complications; E03.9 Hypothyroidism, unspecified; K21.9 Gastro-esophageal reflux disease without esophagitis; F17.200 Nicotine dependence, unspecified, uncomplicated; Z86.69 Personal history of other diseases of the nervous system and sense organs; Z99.89 Dependence on other enabling machines and devices; Z68.42 Body mass index [BMI] 45.0-49.9, adult; Z79.51 Long term (current) use of inhaled steroids; Z79.890 Hormone replacement therapy; Z79.84 Long term (current) use of oral hypoglycemic drugs; Z79.899 Other long term (current) drug therapy
CPT/HCPCS: 99211

== ENCOUNTER → 2019-11-08 | Outpatient (CLI) | payer OTHER ==
--- NOTE | 2019-11-08 11:17 | CT ---
EXAMINATION TYPE: CT abdomen wo con DATE OF EXAM: 11/08/2019 COMPARISON: 03/25/2015 HISTORY: Benign intracranial hypertension, history of shunt CT DLP: 816.3 mGycm Automated exposure control for dose reduction was used. TECHNIQUE: Helical acquisition of images was performed from the lung bases through the top of iliac crest to include entire abdomen. CONTRAST: Performed without Oral Contrast and without IV contrast. FINDINGS: LUNG BASES: Subsegmental linear changes at both lung bases most typical of atelectasis. LIVER/GB: There is slightly reduced in attenuation and measuring 25 cm correlate for hepatic steatosi s possible hepatomegaly. PANCREAS: No significant abnormality is seen. SPLEEN: No significant abnormality is seen. ADRENALS: No significant abnormality is seen. KIDNEYS: Punctate nonobstructing right renal calculus measuring 1 mm. 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 BOWEL: No significant abnormality is seen. LYMPH NODES: No significant abnormality is appreciated. OSSEOUS STRUCTURES: No significant abnormality is seen. FREE AIR: No free air is visualized. OTHER: Postsurgical change in the epigastrium correlate for previous hiatal hernia surgery gastric cloud rgery. There is a right-sided shunt catheter extending from the spinal canal into the intra-abdominal cavity seen extending along the lateral margin of the liver into the upper pelvis. This is similar i n appearance relative to the prior exam. Fat-containing periumbilical small hernia. IMPRESSION: 1. There is no apparent shunt catheter extending from the spinal canal into the right abdomen as disc ussed above. 2. Nonobstructing punctate right renal calculus measuring 1 mm. There are 3 liver is prominent in siz e and reduced in attenuation correlate for hepatomegaly and hepatic steatosis which was also noted on the prior exam.
== END | disposition home or self-care (01) ==
LOC: RADCTMAIN 10:47
PROVIDERS: ATTEND Neurological Surgery
DX: N20.0 Calculus of kidney (principal); G93.2 Benign intracranial hypertension
CPT/HCPCS: 74150

== ENCOUNTER → 2022-07-11 | Day surgery (SDC) | payer OTHER ==
[2022-07-07 09:00] VITALS: BMI 47.2
[~2022-07-11] MED LIST changes: -HYDROmorphone 1 MG/ML 1 ML SYRINGE IVP PRN; -LACTATED RINGERS 1,000 ML IV SCH; +SODIUM CHLORIDE 0.9% 1,000 ML IV SCH
[2022-07-11 11:13] VITALS: BP 133/70; PULSE 96; RESP 16; TEMP 99.4
--- NOTE | 2022-07-11 18:26 | P.EPPROC ---
- EP Procedure Note Electrophysiology Procedure Note: Diagnosis Recurrent syncope Twelve-lead EKG shows sinus rhythm normal FL narrow QRS normal ST segments normal QT interval Heart rate 80 beats a minute No delta waves no epsilon waves Baseline artifact Tilt table test for protocol Baseline blood pressure 120/70 mmHg, Baseline heart rate 77 beats minute Patient was tilted upright at night was 70 per protocol No significant change in blood pressure Minimal increase in heart rate after 20 minutes Patient complained of a variety of symptoms including mild dizziness, discomfort in the shoulders, feeling hot and nauseous and pain in the low back No syncope noted no significant changes in heart rate No changes in blood pressure noted Impression Normal heart rate and blood pressure response to upright tilting Normal twelve-lead EKG
== END ==
LOC: CATHEP 10:43
PROVIDERS: ATTEND Internal Medicine Clinical Cardiac Electrophysiology
DX: R55 Syncope and collapse (principal); J44.9 Chronic obstructive pulmonary disease, unspecified; E11.9 Type 2 diabetes mellitus without complications; E78.5 Hyperlipidemia, unspecified; I10 Essential (primary) hypertension; F17.210 Nicotine dependence, cigarettes, uncomplicated; Z88.6 Allergy status to analgesic agent
CPT/HCPCS: 93660

== ENCOUNTER → 2022-07-25 | Outpatient (CLI) | payer OTHER ==
--- NOTE | 2022-07-26 07:10 | MR ---
EXAMINATION TYPE: MR knee RT wo con DATE OF EXAM: 07/25/2022 COMPARISON: Outside right knee x-ray 10 days ago HISTORY: Right knee pain, locking, and swelling for 3 weeks TECHNIQUE: Multiplanar, multisequence images of the knee is performed without IV contrast. FINDINGS: Exam is suboptimal as is degraded by artifact perhaps related to patient's body habitus. MEDIAL MENISCUS: Suspect some increased signal posterior horn, does not definitively extend to articu lar surface. LATERAL MENISCUS: Anterior and posterior horns are intact without tear. CRUCIATE LIGAMENTS: The anterior and posterior cruciate ligaments are intact and unremarkable. COLLATERAL LIGAMENTS: The medial collateral ligament and lateral collateral ligament complex are inta ct and unremarkable. EXTENSOR MECHANISM: Visualized quadriceps and patellar tendons are intact. EFFUSION: No significant suprapatellar joint effusion. POPLITEAL CYST: No popliteal/crawley cyst. TRICOMPARTMENT SPACES: Mild to moderate tricompartment joint space loss with mild spurring patellofem oral compartment. CARTILAGE: Chondromalacia patella with cartilaginous loss along posterior aspect of the patella. BONE MARROW SIGNAL: Overall heterogeneity. Some areas of mild increased T2 signal along the posterior patellar pole. OTHER: No additional significant abnormality is appreciated. IMPRESSION: Suboptimal study. Tricompartment degenerative changes are present and at least moderate a n appearance patellofemoral compartment which is prominent for patient's chronologic age. Possible in trasubstance tear posterior horn medial meniscus. No full-thickness meniscal or ligamentous tear is s een.
== END | disposition home or self-care (01) ==
LOC: RADMRIMAIN 11:05
PROVIDERS: ATTEND Orthopaedic Surgery
DX: M17.11 Unilateral primary osteoarthritis, right knee (principal)

== ENCOUNTER → 2022-09-26 | Outpatient (CLI) | payer OTHER ==
[2022-09-26 15:30] LABS: Basophils # (A) 0.02 X 10*3/uL (0.00-0.10); Basophils % (A) 0.2 %; Eosinophils # (A) 0 X 10*3/uL (0.04-0.35); Eosinophils % (A) 0 %; HCT 41.9 % (37.2-46.3); HGB 13.9 g/dL (12.0-15.0); Immature Grans, Automated 0.6 %; Lymphocytes # (A) 2.48 X 10*3/uL (0.90-5.00); Lymphocytes % (A) 23.6 %; MCH 29.9 pg (27.0-32.0); MCHC 33.2 g/dL (32.0-37.0); MCV 90.1 fL (80.0-97.0); Monocytes # (A) 0.56 X 10*3/uL (0.20-1.00); Monocytes % (A) 5.3 %; NRBC Per 100 WBC 0 /100 WBCS (0.0-0.0); Neutrophils % (A) 70.3 %; Platelet Count 304 X 10*3/uL (140-440); RBC 4.65 X 10*6/uL (4.10-5.20); RDW 12.4 % (11.5-14.5); WBC 10.52 X 10*3/uL (4.50-10.00)
== END | disposition home or self-care (01) ==
LOC: LABPAT 11:50
PROVIDERS: ATTEND Orthopaedic Surgery
DX: Z01.812 Encounter for preprocedural laboratory examination (principal); M23.91 Unspecified internal derangement of right knee
CPT/HCPCS: 80051; 85025

== ENCOUNTER → 2023-09-01 | Outpatient (CLI) | payer OTHER ==
--- NOTE | 2023-09-01 14:42 | MR ---
EXAMINATION TYPE: MR knee LT wo con DATE OF EXAM: 09/01/2023 COMPARISON: 07/28/2011 HISTORY: Lt knee pain TECHNIQUE: Multiplanar, multisequence imaging of the left knee is performed without IV contrast. FINDINGS: MEDIAL MENISCUS: Anterior and posterior horns are intact without tear. LATERAL MENISCUS: Anterior and posterior horns are intact without tear. CRUCIATE LIGAMENTS: There is abnormal edema and thickening of the ACL felt to reflect high-grade stra in with or without partial tear. PCL is intact. COLLATERAL LIGAMENTS: The medial collateral ligament and lateral collateral ligament complex are inta ct and unremarkable. EXTENSOR MECHANISM: Visualized quadriceps and patellar tendons are intact. EFFUSION: No significant suprapatellar joint effusion. POPLITEAL CYST: No popliteal/crawley cyst. TRICOMPARTMENT SPACES: Intact CARTILAGE: Intact BONE MARROW SIGNAL: Distal femoral enchondroma redemonstrated measuring 1.3 cm versus 1.[address] OTHER: No additional significant abnormality is appreciated. IMPRESSION: 1.There is abnormal edema and thickening of the ACL felt to reflect high-grade strain with or without partial tear. 2.Distal femoral enchondroma redemonstrated measuring 1.3 cm versus 1.1 cm previously.
== END | disposition home or self-care (01) ==
LOC: RADMRIMAIN 13:26
PROVIDERS: ATTEND Orthopaedic Surgery
DX: R60.9 Edema, unspecified (principal)

== ENCOUNTER → 2023-09-30 | Outpatient (CLI) | payer OTHER ==
[2023-09-30 13:15] LABS: Basophils # (A) 0.03 X 10*3/uL (0.00-0.10); Basophils % (A) 0.3 %; Eosinophils # (A) 0 X 10*3/uL (0.04-0.35); Eosinophils % (A) 0 %; HCT 46.6 % (37.2-46.3); HGB 15.3 g/dL (12.0-15.0); Lymphocytes # (A) 2.97 X 10*3/uL (0.90-5.00); Lymphocytes % (A) 31.3 %; MCH 29.8 pg (27.0-32.0); MCHC 32.8 g/dL (32.0-37.0); MCV 90.7 FL (80.0-97.0); Mean Platelet Volume 11.8 FL (9.5-12.2); Monocytes # (A) 0.52 X 10*3/uL (0.20-1.00); Monocytes % (A) 5.5 %; NRBC Per 100 WBC 0 X 10*3/uL (0.00-0.01); Neutrophils # (A) 5.95 X 10*3/uL (1.80-7.70); Neutrophils % (A) 62.6 %; Platelet Count 264 X 10*3/uL (140-440); RBC 5.14 X 10*6/uL (4.10-5.20); RDW 12.7 % (11.5-14.5)
[2023-09-30 13:20] LABS: Blood Urea Nitrogen 12.2 mg/dL (9.0-27.0); Calcium 9.6 mg/dL (8.7-10.3); Carbon Dioxide 27.8 mmol/L (21.6-31.8); Chloride 106 mmol/L (96-109); Glucose 97 mg/dL (70-110); Potassium 4.3 mmol/L (3.5-5.5); Sodium 144 mmol/L (135-145)
== END | disposition home or self-care (01) ==
LOC: LABPAT 09:19
PROVIDERS: ATTEND Orthopaedic Surgery
DX: Z01.812 Encounter for preprocedural laboratory examination (principal); M23.92 Unspecified internal derangement of left knee
CPT/HCPCS: 80048; 85025

== ENCOUNTER 2023-10-05 06:16 | Day surgery (SDC) | payer OTHER ==
[2023-10-02 11:37] VITALS: BMI 40.1
--- NOTE | 2023-10-04 13:48 | HP ---
HISTORY AND PHYSICAL DATE OF SCHEDULED SURGERY: 10/05/2023. HISTORY OF PRESENT ILLNESS: Doreen Kee is a 48-year-old patient seen with progressive left knee pain. Options for treatment were discussed with her, she elected to proceed with left knee arthroscopy. Consent was obtained. PAST MEDICAL HISTORY: Hypertension, hypothyroidism, [id number] diabetes, and gastroesophageal reflux disease. PAST SURGICAL HISTORY: Herniorrhaphy, hysterectomy, knee arthroscopy, shunt placement. DAILY MEDICATIONS: 1. Folic acid. 2. Gabapentin. 3. Meclizine. 4. Nitrostat. 5. Atorvastatin. 6. Flovent. 7. Levothyroxine. 8. Losartan. 9. Omeprazole. 10.Munjaro. ALLERGIES: NSAIDs, Inderal, Levaquin. SOCIAL HISTORY: Smokes half pack of cigarettes daily. PHYSICAL EVALUATION OF THE LEFT KNEE: Range of motion is -4 to 80 degrees. Mild effusion. Tenderness along the medial and lateral joint lines. Positive medial Thomas's. Positive lateral Thomas's. Ligaments stable. Hip rotation without pain. Distal neurovascular exam is intact. RADIOGRAPHS: Left knee radiographs reveal mild osteoarthritis. MRI left knee revealed a partial anterior cruciate ligament tear and a benign-appearing enchondroma. IMPRESSION: 1. Internal derangement of left knee with partial ACL tear. 2. Hypertension. 3. Gastroesophageal reflux disease. 4. [id number] diabetes. PLAN: Left knee arthroscopy with debridement, partial ACL tear. MMODL / IJN: [id number] /
[2023-10-05] MEDS ORDERED: MIDAZOLAM 2 MG/2 ML VIAL IV PRN (06:38)
[2023-10-05] MEDS ORDERED: HYDROmorphone 0.5 MG/0.5 ML SYRINGE IVP PRN (06:38)
[2023-10-05] MEDS ORDERED: ONDANSETRON 4 MG/2 ML VIAL IVP ONE (06:38)
[2023-10-05] MEDS ORDERED: DEXAMETHASONE SOD PHOSPHATE 4 MG/ML 1 ML VIAL IV ONE (06:38)
[2023-10-05] MEDS ORDERED: LIDOCAINE 1% (10MG/ML) FOR IV START INTRADERMA PRN (06:38)
[2023-10-05 07:09] LABS: Glucose,Whole Blood 104 mg/dL (70-110)
[2023-10-05] MEDS: LACTATED RINGERS 1,000 ML IV SCH (07:22)
[2023-10-05] MEDS: ONDANSETRON 4 MG/2 ML VIAL IVP ONE (07:23)
[2023-10-05] MEDS: DEXAMETHASONE SOD PHOSPHATE 4 MG/ML 1 ML VIAL IVP ONE (07:24)
[2023-10-05] MEDS ORDERED: PROPOFOL 10 MG/ML 20 ML VIAL IV ONE (07:25)
[2023-10-05] MEDS ORDERED: LIDOCAINE 1% INJ 10MG/ML (20 ML MDV) ONE (07:25)
[2023-10-05] MEDS ORDERED: SUCCINYLCHOLINE CHLORIDE 200 MG/10 ML VIAL IV ONE (07:25)
[2023-10-05] MEDS ORDERED: MIDAZOLAM 2 MG/2 ML VIAL ONE (07:25)
[2023-10-05] MEDS ORDERED: fentaNYL (PF) 50 MCG/ML 2 ML AMP ONE (07:25)
[2023-10-05] MEDS ORDERED: PHENYLEPHRINE 10 MG/ML VIAL ONE (07:25)
[2023-10-05] MEDS: BUPIVACAINE (PF) 0.25% 30 ML VIAL INTRAARTIC ONE (07:27)
--- NOTE | 2023-10-05 08:21 | P.OP ---
Date of Procedure: 10/05/23 Preoperative Diagnosis: Internal derangement left knee Postoperative Diagnosis: 1. Tear medial and lateral meniscus left knee 2. Grade IV chondromalacia medial femoral condyle left knee 3. Grade 4 chondromalacia femoral sulcus left knee 4. Reactive synovitis medial, lateral and suprapatellar compartments left knee 5. Partial ACL tear left knee Procedure(s) Performed: 1. Arthroscopic partial medial and lateral meniscectomy left knee 2. Arthroscopic microfracture medial femoral condyle left knee 3. Arthroscopic microfracture femoral sulcus left knee 4. Arthroscopic partial synovectomy medial, lateral and suprapatellar compartments left knee 5. Arthroscopic debridement partial ACL tear left knee Anesthesia: GETA, local Surgeon: Lexa Benedict Estimated Blood Loss (ml): 6 Pathology: none sent Condition: stable Disposition: PACU Indications for Procedure: 48-year-old patient seen with progressive left knee pain. After treatment options were discussed, she elected to proceed with arthroscopy. Operative Findings: See description of procedure Description of Procedure: Patient was taken to the operative suite. Patient underwent a general anesthetic by the department of anesthesia. Patient was given preoperative antibiotics. The left lower extremity was placed in a well-padded arthroscopic leg perez. The left leg was prepped and draped in the normal sterile orthopedic fashion. A lateral parapatellar and suprapatellar incision was made. Trochars were inserted. Arthroscopy was initiated. Suprapatellar pouch revealed diffuse thick reactive synovitis. The patellofemoral joint appeared to articular congruently. There was grade III chondromalacia patella and grade III/IV chondromalacia of the femoral sulcus with an area of exposed bone along the medial facet. The scope was guided into the medial gutter. No loose bodies or plica were identified. The scope was then guided into the medial compartment. A medial parapatellar incision was made. Trocar inserted followed by probe. There was an area of grade III chondromalacia medial femoral condyle with osteochondral flap tears. There was a radial tear posterior horn medial meniscus. There were grade II chondromalacia changes of the tibial plateau without tears. There was thick reactive synovitis anteriorly. I performed a partial medial meniscectomy getting down to stable meniscal tissue. I performed a chondroplasty of the medial femoral condyle getting down to stable osteochondral tissue. I performed a partial synovectomy decompressing the reactive synovitis. I did note an area of exposed bone weightbearing surface m edial femoral condyle measuring under centimeter. I introduced a microfracture awl and I performed a microfracture to that area of exposed bone penetrating the bone with resultant bleeding at the microfracture site. The residual meniscus was probed and was found to be stable. The residual osteochondral surface was stable. There was good decompression of the synovitis. Scope and probe were then guided into the intercondylar notch. There was partial tearing of the anterior cruciate ligament. I introduced a motorized shaver and debrided that down to stable ligamentous tissue. The residual ligament appeared stable. The PCL was stable. The scope and probe were then guided into lateral compartment. There was a radial tear involving the mid body of the lateral meniscus. There were grade I chondromalacia changes involving the lateral compartment. There was some thick reactive synovitis anteriorly. I performed a partial lateral meniscectomy getting down to stable meniscal tissue. I performed a partial synovectomy decompressing the reactive synovitis. The residual meniscus was probed and was found to be stable. There was good decompression of the synovitis. The scope was in guided back into the suprapatellar compartment. I introduced a motorized shaver into the suprapatellar compartment. I performed a chondroplasty of that femoral sulcus getting down to stable osteochondral tissue. I performed a partial synovectomy decompressing the reactive synovitis. I did note an area of exposed bone along the medial aspect of the femoral sulcus measuring 1.5 x 1.5 cm. I introduced a microfracture awl and I performed a microfracture to that area of exposed bone penetrating the bone with resultant bleeding at the microfracture site. The residual osteochondral surface was probed and was found to be stable. I now took 1 more look around the entire knee, no residual debris. Instruments were now removed from the joint. The joint was infiltrated with .25% Marcaine. Steri-Strips were applied to the portal sites. Sterile dressings were applied. The patient was placed into a SENIA hose. No tourniquet was utilized. The patient was awakened, transferred to a bed and taken to recovery stable satisfactory condition.
[2023-10-05 08:31] LABS: Glucose,Whole Blood 114 mg/dL (70-110)
[2023-10-05 08:47] VITALS: TEMP 97
[2023-10-05] MEDS: Acetaminophen-Codeine 300-30mg TAB ONE (09:44)
[2023-10-05 10:50] VITALS: BP 137/67; PULSE 68; RESP 18
== END 2023-10-05 10:58 | disposition home or self-care (01) ==
LOC: OR 06:16
PROVIDERS: ATTEND Orthopaedic Surgery
DX: S83.282A Other tear of lateral meniscus, current injury, left knee, initial encounter (principal); S83.242A Other tear of medial meniscus, current injury, left knee, initial encounter; S83.512A Sprain of anterior cruciate ligament of left knee, initial encounter; M22.42 Chondromalacia patellae, left knee; M65.162 Other infective (teno)synovitis, left knee; E03.9 Hypothyroidism, unspecified; E11.9 Type 2 diabetes mellitus without complications; I10 Essential (primary) hypertension; K21.9 Gastro-esophageal reflux disease without esophagitis; F17.210 Nicotine dependence, cigarettes, uncomplicated; Z79.84 Long term (current) use of oral hypoglycemic drugs; Z88.1 Allergy status to other antibiotic agents; Z79.890 Hormone replacement therapy; Z88.6 Allergy status to analgesic agent; Z79.899 Other long term (current) drug therapy; X58.XXXA Exposure to other specified factors, initial encounter
CPT/HCPCS: 29879; 29880; J2250; J0330; J1100; J0690; J2405; J2001; J3010; J2704; J2371; J0665

== ENCOUNTER 2023-10-19 06:48 | Day surgery (SDC) | payer OTHER ==
[2023-10-18 10:19] VITALS: BMI 40.5
[2023-10-19] MEDS: LACTATED RINGERS 1,000 ML IV SCH (07:28)
[2023-10-19 07:29] LABS: Glucose,Whole Blood 104 mg/dL (70-110)
[2023-10-19] MEDS ORDERED: LIDOCAINE 1% INJ 10MG/ML (20 ML MDV) ONE (07:32)
[2023-10-19] MEDS ORDERED: PROPOFOL 10 MG/ML 20 ML VIAL IV ONE (07:32)
[2023-10-19 07:53] VITALS: RESP 16; TEMP 97.5
--- NOTE | 2023-10-19 07:59 | P.OP ---
Date of Procedure: 10/19/23 Preoperative Diagnosis: screening colonoscopy Postoperative Diagnosis: diverticulosis Procedure(s) Performed: colonoscopy Anesthesia: MAC Surgeon: Paul Orta Pathology: none sent Condition: stable Disposition: PACU Description of Procedure: the patient's placed on the endoscopy table in the lateral position. He received IV sedation. Digital rectal exam was performed. This revealed no abnormalities. The flexible colonoscope was then placed the patient's anus and passed throughout the entire colon. The ileocecal valve was visualized. Cecum, ascending and transverse colon appeared normal. In the descending and sigmoid colon there appeared to be evidence of mild diverticulosis. Scope was then brought back the rectum and this appeared normal. Scope withdrawn for patient.
[2023-10-19 08:03] LABS: Glucose,Whole Blood 110 mg/dL (70-110)
--- NOTE | 2023-10-19 08:10 | P.GSHP ---
History of Present Illness H&P Date: 10/19/23 Chief Complaint: screening colonoscopy this a 48-year-old female presents today for colonoscopy. Patient's liver had screening colonoscopy before. Past Medical History Past Medical History: Chest Pain / Angina, COPD, Diabetes Mellitus, GERD/Reflux, GI Bleed, Hearing Disorder / Deafness, Hyperlipidemia, Hypertension, Renal Disease, Sleep Apnea/CPAP/BIPAP, Thyroid Disorder Additional Past Medical History / Comment(s): Hemorrhoids. 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 Born with one kidney which functions at 50%. Hx anemia, vertigo. CPAP use. Migraines. Arthritis. Bilateral hearing aid use. this surg. was rescheduled from September History of Any Multi-Drug Resistant Organisms: None Reported Past Surgical History: Breast Surgery, Cholecystectomy, Ear Surgery, Hernia Repair, Hysterectomy, Orthopedic Surgery, Tubal Ligation, Uterine Ablation Additional Past Surgical History / Comment(s): Neck fusion C5-6-7, lumbar shunt - wraps around to right side of abdomen, arthroscopy left knee X3, colonoscopy, bilateral breast biopsy, both benign, bilateral foot surgery for plantar fasciitis, tubes in ears. Past Anesthesia/Blood Transfusion Reactions: Motion Sickness, Postoperative Nausea & Vomiting (PONV) Additional Past Anesthesia/Blood Transfusion Reaction / Comment(s): Vertigo., no blood transfusion wakes up slowly Smoking Status: Current every day smoker - Past Family History Brother(s) Family Medical History: Cancer Additional Family Medical History / Comment(s): throat Mother Family Medical History: AFIB, Cancer Additional Family Medical History / Comment(s): bone Father Family Medical History: Cancer Additional Family Medical History / Comment(s): colon Medications and Allergies Home Medications Medication Instructions Recorded Confirmed Type Acetaminophen Tab [Tylenol] 500 mg PO Q4H PRN 03/13/14 10/18/23 History Folic Acid 1 mg PO DAILY 03/13/14 10/18/23 History Citalopram Hydrobromide [CeleXA] 40 mg PO HS 10/26/15 10/18/23 History Loratadine [Claritin] 10 mg PO HS 10/26/15 10/18/23 History Gabapentin [Neurontin] 300 mg PO HS 09/02/16 10/18/23 History Levothyroxine Sodium [Synthroid] 100 mcg PO DAILY 09/02/16 10/18/23 History Dicyclomine [Bentyl] 10 mg PO BID 04/19/17 10/18/23 History Ergocalciferol [Vitamin D2] 50,000 unit PO SA 04/19/17 10/18/23 History Omeprazole [PriLOSEC] 40 mg PO AC-BRKFST 04/19/17 10/18/23 History Fluticasone Nasal Russell [Flonase 2 spray EA NOSTRIL BID 04/23/18 10/18/23 History Nasal Russell] Ferrous Sulfate [Iron] 325 mg PO DAILY 03/22/19 10/18/23 History Atorvastatin [Lipitor] 40 mg PO HS 09/30/22 10/18/23 History Clobetasol Propionate/Emoll 1 applic TOPICAL MOWEFR PRN 09/30/22 10/18/23 History [Clobetasol Emulsion 0.05% Foam] Empagliflozin [Jardiance] 10 mg PO DAILY 09/30/22 10/18/23 History Famotidine [Pepcid] 20 mg PO HS 09/30/22 10/18/23 History Fluticasone Propionate 220 Mcg 2 puff INHALATION DAILY 09/30/22 10/18/23 History [Flovent 220 Mcg Inhaler] Latanoprost [Latanoprost 0.005%] 1 drop BOTH EYES HS 09/30/22 10/18/23 History Losartan [Cozaar] 25 mg PO DAILY 09/30/22 10/18/23 History Tirzepatide [Mounjaro] 5 mg SQ SA 10/02/23 10/18/23 History Vitamin K2 [Vitamin K-2] 100 mcg PO 10/02/23 10/18/23 History Acetaminophen-Codeine 300-30mg 1 tab PO Q6H PRN 3 Days #12 tablet 10/05/23 10/18/23 Rx [Tylenol w/codeine #3] Benralizumab [Fasenra] 30 mg SQ Q60D 10/18/23 10/18/23 History Allergies Allergy/AdvReac Type Severity Reaction Status Date / Time levofloxacin [From Levaquin] Allergy Rash/Hives Verified 10/19/23 07:16 NSAIDS (Non-Steroidal Allergy RENAL Verified 10/19/23 07:16 Anti-Inflamma DISEASE propranolol HCl Allergy Rash/Hives Verified 10/19/23 07:16 [From Inderal LA] ibuprofen [From Motrin] AdvReac RENAL Verified 10/19/23 07:16 DISEASE IRON INFUSION AdvReac Dyspnea Uncoded 10/19/23 07:16 Surgical - Exam Vital Signs Temp Pulse Resp BP Pulse Ox 97.5 F L 81 16 114/75 95 10/19/23 07:31 10/19/23 07:31 10/19/23 07:31 10/19/23 07:31 10/19/23 07:31 - General well developed, well nourished, no distress - Eyes PERRL - ENT normal pinna - Neck no masses - Respiratory normal expansion - Cardiovascular Rhythm: regular - Abdomen Abdomen: soft, non tender Assessment and Plan Assessment: we'll perform screening colonoscopy
[2023-10-19 08:41] VITALS: BP 96/53; PULSE 67
== END 2023-10-19 08:32 | disposition home or self-care (01) ==
LOC: ORWHC2ENDO 06:48
PROVIDERS: ATTEND Surgery
DX: Z12.11 Encounter for screening for malignant neoplasm of colon (principal); K57.30 Diverticulosis of large intestine without perforation or abscess without bleeding; J44.9 Chronic obstructive pulmonary disease, unspecified; E11.9 Type 2 diabetes mellitus without complications; K21.9 Gastro-esophageal reflux disease without esophagitis; E78.5 Hyperlipidemia, unspecified; I10 Essential (primary) hypertension; E07.9 Disorder of thyroid, unspecified; G47.33 Obstructive sleep apnea (adult) (pediatric); F17.200 Nicotine dependence, unspecified, uncomplicated; Z90.710 Acquired absence of both cervix and uterus; Z98.51 Tubal ligation status; Z98.890 Other specified postprocedural states; Z82.49 Family history of ischemic heart disease and other diseases of the circulatory system; Z79.890 Hormone replacement therapy; Z79.899 Other long term (current) drug therapy; Z79.84 Long term (current) use of oral hypoglycemic drugs; Z79.51 Long term (current) use of inhaled steroids; Z88.1 Allergy status to other antibiotic agents; Z88.6 Allergy status to analgesic agent; Z80.0 Family history of malignant neoplasm of digestive organs
CPT/HCPCS: 45378; J2001; J2704

== ENCOUNTER → 2024-04-18 | Outpatient (CLI) | payer OTHER ==
[2024-04-18 16:33] LABS: Basophils # (A) 0.03 X 10*3/uL (0.00-0.10); Basophils % (A) 0.3 %; Eosinophils # (A) 0.01 X 10*3/uL (0.04-0.35); Eosinophils % (A) 0.1 %; HCT 43.9 % (37.2-46.3); HGB 14.6 g/dL (12.0-15.0); Lymphocytes # (A) 2.23 X 10*3/uL (0.90-5.00); Lymphocytes % (A) 25.8 %; MCH 30.4 pg (27.0-32.0); MCHC 33.3 g/dL (32.0-37.0); MCV 91.5 FL (80.0-97.0); Mean Platelet Volume 11.9 FL (9.5-12.2); Monocytes # (A) 0.43 X 10*3/uL (0.20-1.00); NRBC Per 100 WBC 0 X 10*3/uL (0.00-0.01); Neutrophils # (A) 5.92 X 10*3/uL (1.80-7.70); Neutrophils % (A) 68.6 %; Platelet Count 242 X 10*3/uL (140-440); RDW 13.1 % (11.5-14.5); WBC 8.64 X 10*3/uL (4.50-10.00)
[2024-04-18 17:00] LABS: % Iron Saturation 29.28 (12.00-45.00); ALT 23 U/L (8-44); AST 19 U/L (13-35); Albumin 4.3 g/dL (3.8-4.9); Albumin/Globulin Ratio 1.95 Ratio (1.60-3.17); Alkaline Phosphatase 117 U/L (41-126); BUN/Creat Ratio 13.89 Ratio (12.00-20.00); Blood Urea Nitrogen 12.5 mg/dL (9.0-27.0); Calcium 9.5 mg/dL (8.7-10.3); Carbon Dioxide 27.3 mmol/L (21.6-31.8); Chloride 105 mmol/L (96-109); Chol/HDL Ratio 2.98 Ratio; Globulin 2.2 g/dL (1.6-3.3); Glucose 83 mg/dL (70-110); Iron 94 UG/DL (50-170); LDL Cholesterol,Calculated 67.7 mg/dL (0.0-131.0); Potassium 4.1 mmol/L (3.5-5.5); Sodium 143 mmol/L (135-145); Total Bilirubin 0.4 mg/dL (0.3-1.2); Total Iron Binding Capacity 321 UG/DL (228-460); Total Protein 6.5 g/dL (6.2-8.2); Uric Acid 3.3 mg/dL (2.9-7.7)
[2024-04-19 02:04] LABS: Microalbumin Creatinine Ratio <56 mg/g Cr (0-30); Urine Creatinine 21.6 mg/dL (28.0-217.0)
== END | disposition home or self-care (01) ==
LOC: LABWHC1 10:17
PROVIDERS: ATTEND Nurse Practitioner Gerontology
CPT/HCPCS: 36415; 80053; 80061; 82043; 82306; 82570; 82607; 82728; 82746; 83036; 83540; 83550; 84443; 84550; 85025

== ENCOUNTER → 2024-11-01 | Outpatient (CLI) | payer OTHER ==
[2024-11-01 19:47] LABS: Basophils # (A) 0.01 X 10*3/uL (0.00-0.10); Basophils % (A) 0.1 %; Eosinophils # (A) 0 X 10*3/uL (0.04-0.35); Eosinophils % (A) 0 %; HCT 41.9 % (37.2-46.3); HGB 13.7 g/dL (12.0-15.0); Lymphocytes # (A) 2.48 X 10*3/uL (0.90-5.00); Lymphocytes % (A) 29.8 %; MCH 29.8 pg (27.0-32.0); MCHC 32.7 g/dL (32.0-37.0); MCV 91.3 FL (80.0-97.0); Mean Platelet Volume 11.7 FL (9.5-12.2); Monocytes # (A) 0.41 X 10*3/uL (0.20-1.00); Monocytes % (A) 4.9 %; NRBC Per 100 WBC 0 X 10*3/uL (0.00-0.01); Neutrophils # (A) 5.41 X 10*3/uL (1.80-7.70); Platelet Count 244 X 10*3/uL (140-440); RBC 4.59 X 10*6/uL (4.10-5.20); RDW 12.1 % (11.5-14.5); WBC 8.33 X 10*3/uL (4.50-10.00)
[2024-11-01 19:51] LABS: ALT 15 U/L (8-44); AST 14 U/L (13-35)
[2024-11-01 20:17] LABS: Hepatitis B Surface Antigen Nonreactive (Nonreactive); Hepatitis C IgG Antibody Nonreactive (Nonreactive)
[2024-11-01 21:16] LABS: Hepatitis B Surface AB- Quant 81.1 mIU/mL
== END | disposition home or self-care (01) ==
LOC: LABWHC1 14:01
PROVIDERS: ATTEND Internal Medicine
DX: L40.0 Psoriasis vulgaris (principal); L21.8 Other seborrheic dermatitis; L30.9 Dermatitis, unspecified; L40.8 Other psoriasis; L30.4 Erythema intertrigo; Z79.899 Other long term (current) drug therapy
CPT/HCPCS: 36415; 82565; 84450; 84460; 85025; 86480; 86704; 86706; 86803; 87340

== ENCOUNTER → 2024-12-05 | Outpatient (CLI) | payer OTHER ==
--- NOTE | 2024-12-05 12:44 | CTL ---
EXAMINATION TYPE: CT Low Dose Lung DATE OF EXAM: 12/05/2024 12:18 PM COMPARISON: None. CLINICAL INDICATION: Female, 49 years old with history of Z12.2 LUNG CA SCREENING F17.210 CURRENT SMO KER; personal tobacco use, history of tobacco use. TECHNIQUE: Multiple axial non-contrast scans were obtained from approximately the lung apices through the upper abdomen. Coronal and sagittal reformatted images were obtained. Low dose technique was uti lized. MIP were created on a separate workstation and submitted for review. CT DLP: 128.8 mGycm, Automated exposure control for dose reduction was used. CT Contrast: Contrast used: None Oral contrast used: None FINDINGS: Lack of intravenous contrast and low dose technique limits the evaluation of the vascular and soft ti ssue structures. LUNGS: No evidence of pulmonary fibrosis. No evidence of focal consolidation, pneumothorax or pleural effusion. Centrilobular emphysema changes. Nodules: RUL: None. RML: None. RLL: None. CUBA: None. LLL: None. AIRWAY: Patent and unremarkable. HEART: Size within normal limits. No significant coronary artery calcifications. MEDIASTINUM: No gross evidence of adenopathy. VASCULATURE: No aortic aneurysm. MUSCULOSKELETAL: Mild disc degeneration changes are present throughout the thoracolumbar spine. SOFT TISSUES/LYMPH NODES: Unremarkable. LOWER NECK: No significant findings. UPPER ABDOMEN: No significant findings. IMPRESSION: 1. No clinically significant pulmonary nodules. 2. Mild emphysema. CT LUNG RAD AND CT CHEST RECOMMENDATION: Lung-Rad 1 Negative: Continue annual screening with LDCT in 12 months. S Modifier (other clinically significant findings): None Recommend smoking cessation (if current smoker), or continuation of smoking cessation (if prior smoke r). Annual screening for lung cancer with low-dose computed tomography is recommended in adults ages 55 to 77 years who have a 30 pack-year smoking history and currently smoke or have quit within the pa st 15 years. Screening should be discontinued once a person has not smoked for 15 years or develops a health problem that substantially limits life expectancy or the ability or willingness to have curat karen lung surgery. Lung rads 2021 [email or web address] [facility], , 12/05/2024 12:42 PM
== END | disposition home or self-care (01) ==
LOC: RADCTMAIN 11:53
PROVIDERS: ATTEND Family Medicine
DX: Z12.2 Encounter for screening for malignant neoplasm of respiratory organs (principal); F17.210 Nicotine dependence, cigarettes, uncomplicated; J43.2 Centrilobular emphysema
CPT/HCPCS: 71271

== ENCOUNTER 2024-12-15 14:37 | Emergency (ER) | payer OTHER ==
[2024-12-15 15:10] VITALS: RESP 16; TEMP 98.4
--- NOTE | 2024-12-15 15:51 | ED ---
Abdominal Pain HPI - General Source: patient, RN notes reviewed Mode of arrival: ambulatory Limitations: no limitations <Melia Boyd - Last Filed: 12/15/24 15:50> - General Source: patient, RN notes reviewed, old records reviewed Mode of arrival: ambulatory Limitations: no limitations - History of Present Illness MD Complaint: abdominal pain, flank pain (Right sided) -: days(s) Location: RLQ, suprapubic, R flank Radiation: suprapubic Migration to: suprapubic, R flank Severity: severe Severity scale (1-10): 8 Quality: sharp Consistency: intermittent Improves With: nothing Worsens With: nothing Associated Symptoms: nausea, vomiting Treatments Prior to Arrival: other (0) <Kashmir Garcia - Last Filed: 12/15/24 23:00> - General Chief Complaint: Abdominal Pain Stated Complaint: abd pain Time Seen by Provider: 12/15/24 15:50 - History of Present Illness Initial Comments: Quick [id number] female with history of kidney stones presenting for right flank pain with associated urinary frequency. States this feels similar to previous kidney stones. (Melia Boyd) This is a 49 female to the ER for evaluation of abdominal pain flank pain right- sided flank pain rating to groin patient feels like his prior kidney stones, positive nausea severe pain pain in the lower back. No fevers no dysuria no problems with bowel movements (Kashmir Garcia) - Related Data Home Medications Medication Instructions Recorded Confirmed Acetaminophen Tab [Tylenol] 500 mg PO Q4H PRN 03/13/14 10/18/23 Folic Acid 1 mg PO DAILY 03/13/14 10/18/23 Citalopram Hydrobromide [CeleXA] 40 mg PO HS 10/26/15 10/18/23 Loratadine [Claritin] 10 mg PO HS 10/26/15 10/18/23 Gabapentin [Neurontin] 300 mg PO HS 09/02/16 10/18/23 Levothyroxine Sodium [Synthroid] 100 mcg PO DAILY 09/02/16 10/18/23 Dicyclomine [Bentyl] 10 mg PO BID 04/19/17 10/18/23 Ergocalciferol [Vitamin D2] 50,000 unit PO SA 04/19/17 10/18/23 Omeprazole [PriLOSEC] 40 mg PO AC-BRKFST 04/19/17 10/18/23 Fluticasone Nasal [place] [Flonase 2 spray EA NOSTRIL BID 04/23/18 10/18/23 Nasal [place]] Ferrous Sulfate [Iron] 325 mg PO DAILY 03/22/19 10/18/23 Atorvastatin [Lipitor] 40 mg PO HS 09/30/22 10/18/23 Clobetasol Propionate/Emoll 1 applic TOPICAL MOWEFR PRN 09/30/22 10/18/23 [Clobetasol Emulsion 0.05% Foam] Empagliflozin [Jardiance] 10 mg PO DAILY 09/30/22 10/18/23 Famotidine [Pepcid] 20 mg PO HS 09/30/22 10/18/23 Fluticasone Propionate 220 Mcg 2 puff INHALATION DAILY 09/30/22 10/18/23 [Flovent 220 Mcg Inhaler] Latanoprost [Latanoprost 0.005%] 1 drop BOTH EYES HS 09/30/22 10/18/23 Losartan [Cozaar] 25 mg PO DAILY 09/30/22 10/18/23 Tirzepatide [Mounjaro] 5 mg SQ SA 10/02/23 10/18/23 Vitamin K2 [Vitamin K-2] 100 mcg PO SA 10/02/23 10/18/23 Benralizumab [Fasenra] 30 mg SQ Q60D 10/18/23 10/18/23 Previous Rx's Medication Instructions Recorded Acetaminophen-Codeine 300-30mg 1 tab PO Q6H PRN 3 Days #12 tablet 10/05/23 [Tylenol w/codeine #3] Allergies Allergy/AdvReac Type Severity Reaction Status Date / Time levofloxacin [From Levaquin] Allergy Rash/Hives Verified 12/15/24 15:10 NSAIDS (Non-Steroidal Allergy RENAL Verified 12/15/24 15:10 Anti-Inflamma DISEASE propranolol HCl Allergy Rash/Hives Verified 12/15/24 15:10 [From Inderal LA] ibuprofen [From Motrin] AdvReac RENAL Verified 12/15/24 15:10 DISEASE IRON INFUSION AdvReac Dyspnea Uncoded 10/19/23 07:16 Review of Systems ROS Other: All systems not noted in ROS Statement are negative. <Melia Boyd - Last Filed: 12/15/24 15:50> ROS Other: All systems not noted in ROS Statement are negative. <Tian Garciae Trey - Last Filed: 12/15/24 23:00> ROS Statement: Those systems with pertinent positive or pertinent negative responses have been documented in the HPI. Past Medical History Past Medical History: Chest Pain / Angina, COPD, Diabetes Mellitus, GERD/Reflux, GI Bleed, Hearing Disorder / Deafness, Hyperlipidemia, Hypertension, Renal Disease, Sleep Apnea/CPAP/BIPAP, Thyroid Disorder Additional Past Medical History / Comment(s): Hemorrhoids. 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 Born with one kidney which functions at 50%. Hx anemia, vertigo. CPAP use. Migraines. Arthritis. Bilateral hearing aid use. this surg. was rescheduled from September History of Any Multi-Drug Resistant Organisms: None Reported Past Surgical History: Breast Surgery, Cholecystectomy, Ear Surgery, Hernia Repair, Hysterectomy, Orthopedic Surgery, Tubal Ligation, Uterine Ablation Additional Past Surgical History / Comment(s): Neck fusion C5-6-7, lumbar shunt - wraps around to right side of abdomen, arthroscopy left knee X3, colonoscopy, bilateral breast biopsy, both benign, bilateral foot surgery for plantar fasciitis, tubes in ears. Past Anesthesia/Blood Transfusion Reactions: Motion Sickness, Postoperative Nausea & Vomiting (PONV) Additional Past Anesthesia/Blood Transfusion Reaction / Comment(s): Vertigo. Past Psychological History: Anxiety, Depression Smoking Status: Current every day smoker - Past Family History Brother(s) Family Medical History: Cancer Additional Family Medical History / Comment(s): throat Mother Family Medical History: AFIB, Cancer Additional Family Medical History / Comment(s): bone Father Family Medical History: Cancer Additional Family Medical History / Comment(s): colon <OliverMelia - Last Filed: 12/15/24 15:50> General Exam Limitations: no limitations <OliverMelia - Last Filed: 12/15/24 15:50> General appearance: alert, in no apparent distress Head exam: Present: atraumatic, normocephalic, normal inspection Eye exam: Present: normal appearance, PERRL, EOMI. Absent: scleral icterus, conjunctival injection, periorbital swelling ENT exam: Present: normal exam, mucous membranes moist Neck exam: Present: normal inspection. Absent: tenderness, meningismus, lymphadenopathy Respiratory exam: Present: normal lung sounds bilaterally. Absent: respiratory distress, wheezes, rales, rhonchi, stridor Cardiovascular Exam: Present: regular rate, normal rhythm, normal heart sounds. Absent: systolic murmur, diastolic murmur, rubs, gallop, clicks GI/Abdominal exam: Present: soft, normal bowel sounds. Absent: distended, tenderness, guarding, rebound, rigid Extremities exam: Present: normal inspection, full ROM, normal capillary refill. Absent: tenderness, pedal edema, joint swelling, calf tenderness Back exam: Present: normal inspection Neurological exam: Present: alert, oriented X3, CN II-XII intact Psychiatric exam: Present: normal affect, normal mood Skin exam: Present: warm, dry, intact, normal color. Absent: rash <Kashmir Garcia - Last Filed: 12/15/24 23:00> - General Exam Comments Initial Comments: Visual Physical Exam Vital signs reviewed General: Well-appearing, nontoxic, no acute distress. Head: Normocephalic, atraumatic Eyes: PERRLA, EOMI ENT: Airway patent Chest: Nonlabored breathing Skin: No visual rash, normal skin tone Neuro: Alert and oriented 3 Musculoskeletal: No gross abnormalities (Melia Boyd) Course <Kashmir Garcia - Last Filed: 12/15/24 23:00> Vital Signs 12/15/24 15:08 Temperature 98.4 F Pulse Rate 81 Respiratory 16 Rate Blood Pressure 107/67 O2 Sat by Pulse 97 Oximetry - Reevaluation(s) Reevaluation #1: 12/15/24 22:59 Medical records reviewed (Kashmir Garcia) Reevaluation #2: 12/15/24 22:59 Patient symptoms improved (Kashmir Garcia) Reevaluation #3: 12/15/24 22:59 Patient informed of results questions answered (Kashmir Garcia) Reevaluation #4: Was pt. sent in by a medical professional or institution (, PA, [employer] E[employer]MENT OPERATOR, urgent care, hospital, or correction...) When possible be specific @ -no Did you speak to anyone other than the patient for history (EMS, parent, family, police, friend...)? What history was obtained from this source @ -no Did you review nursing and triage notes (agree or disagree)? Why? @ -agree Are old charts reviewed (outside hosp., previous admission, EMS record, old EKG, old radiological studies, urgent care reports/EKG's, correction records)? Report findings @ -yes Differential Diagnosis (chest pain, altered mental status, abdominal pain women, abdominal pain men, vaginal bleeding, weakness, fever, dyspnea, syncope, headache, dizziness, GI bleed, back pain, seizure, CVA, palpatations, mental health, musculoskeletal)? @ -prior EKG interpreted by me (3pts min.). @ -yes X-rays interpreted by me (1pt min.). @ -yes negative for acute disease CT interpreted by me (1pt min.). @ -no U/S interpreted by me (1pt. min.). @ -no What testing was considered but not performed or refused? (CT, X-rays, U/S, labs)? Why? @ -none What meds were considered but not given or refused? Why? @ -none Did you discuss the management of the patient with other professionals (professionals i.e. , PA, [employer]ING EQUIPMENT OPERATOR, lab, RT, psych nurse, social studies teacher, house principal, teacher, booking police officer, child welfare caseworker)? Give summary @ -no Was smoking cessation discussed for >3mins.? @ -no Was critical care preformed (if so, how long)? @ -no Were there social determinants of health that impacted care today? How? (Homelessness, low income, unemployed, alcoholism, drug addiction, transportatio n, low edu. Level, literacy, decrease access to med. care, [place] [facility], rehab)? @ -none Was there de-escalation of care discussed even if they declined (Discuss DNR or withdrawal of care, Hospice)? DNR status @ -no What co-morbidities impacted this encounter? (DM, HTN, Smoking, COPD, CAD, Cancer, CVA, ARF, Chemo, Hep., AIDS, mental health diagnosis, sleep apnea, morbid obesity)? @ -none Was patient admitted / discharged? Hospital course, mention meds given and route, prescriptions, significant lab abnormalities, going to OR and other pertinent info. @ - Undiagnosed new problem with uncertain prognosis? @ -no Drug Therapy requiring intensive monitoring for toxicity (Heparin, Nitro, Insulin, Cardizem)? @ -no Were any procedures done? @ -no Diagnosis/symptom? @ - Acute, or Chronic, or Acute on Chronic? @ -Acute Uncomplicated (without systemic symptoms) or Complicated (systemic symptoms)? @ -Complicated Side effects of treatment? @ -no Exacerbation, Progression, or Severe Exacerbation? @ -exacerbation Poses a threat to life or bodily function? How? (Chest pain, [place], [place], pneumonia, PE, COPD, DKA, ARF, appy, cholecystitis, CVA, Diverticulitis, Homicidal, Suicidal, threat to staff... and all critical care pts) @ -yes (Kashmir Garcia) Reevaluation #5: Differential Abdominal Pain Women: Appendicitis, Cholecystitis, diverticulosis, ischemic bowel, pancreatitis, hepatitis, UTI, gastroenteritis, AAA, incarcerated hernia, bowel obstruction, constipation, inflammatory bowel, hepatitis, peptic ulcer disease, splenic infarction, perforated viscus, vulvitis, ovarian torsion, PID, kidney stone, placenta abruption, this is not meant to be an all-inclusive list (Kashmir Garcia) Medical Decision Making <Melia Boyd - Last Filed: 12/15/24 15:50> - Lab Data Result diagrams: 12/15/24 17:55 12/15/24 17:51 - Radiology Data Radiology results: report reviewed (CT abdomen pelvis negative for acute disease), image reviewed <Kashmir Garcia - Last Filed: 12/15/24 23:00> - Medical Decision Making I completed the quick note portion of this chart signed Melia Boyd PA-C (Melia Boyd) 49 female to the ER for evaluation abdominal pain feels a prior kidney stones. CT scanning negative lab test normal patient has adequate pain control be discharged home (Kashmir Garcia) - Lab Data Lab Results 12/15/24 12/15/24 12/15/24 Range/Units 17:51 17:51 17:51 WBC (4.50-10.00) 10*3/uL RBC (4.10-5.20) 10*6/uL Hgb (12.0-15.0) g/dL Hct (37.2-46.3) % MCV (80.0-97.0) fL MCH (27.0-32.0) pg MCHC (32.0-37.0) g/dL Plt Count (140-440) 10*3/uL MPV (9.5-12.2) fL Immature Gran % (Auto) % Neutrophils % % Lymphocytes % % Monocytes % % Eosinophils % % Basophils % % Immature Gran # (0.00-0.04) 10*3/uL Neutrophils # (1.80-7.70) 10*3/uL Lymphocytes # (0.90-5.00) 10*3/uL Monocytes # (0.20-1.00) 10*3/uL Eosinophils # (0.04-0.35) 10*3/uL Basophils # (0.00-0.10) 10*3/uL Sodium 140 (137-145) mmol/L Potassium 3.6 (3.5-5.1) mmol/L Chloride 107 (98-107) mmol/L Carbon Dioxide 25 (22-30) mmol/L Anion Gap 8 mmol/L BUN 13 (7-17) mg/dL Creatinine 0.87 (0.52-1.04) mg/dL Est GFR (CKD-EPI)AfAm >90 (>60 ml/min/1.73 sqM) Est GFR (CKD-EPI)NonAf 78 (>60 ml/min/1.73 sqM) Glucose 96 (74-99) mg/dL Plasma Lactic Acid Wyatt 0.8 (0.7-2.0) mmol/L Calcium 9.2 (8.4-10.2) mg/dL Total Bilirubin 0.4 (0.2-1.3) mg/dL AST 19 (14-36) U/L ALT 16 (4-34) U/L Alkaline Phosphatase 111 (38-126) U/L Total Protein 6.4 (6.3-8.2) g/dL Albumin 3.9 (3.5-5.0) g/dL Urine Color Colorless Urine Appearance Clear (Clear) Urine pH 5.0 (5.0-8.0) Ur Specific [place] 1.025 (1.001-1.035) Urine Protein Negative (Negative) Urine Glucose (UA) 4+ H (Negative) Urine Ketones Negative (Negative) Urine Blood Negative (Negative) Urine Nitrite Negative (Negative) Urine Bilirubin Negative (Negative) Urine Urobilinogen <2.0 (<2.0) mg/dL Ur Leukocyte Esterase Negative (Negative) 12/15/24 Range/Units 17:55 WBC 8.97 (4.50-10.00) 10*3/uL RBC 4.52 (4.10-5.20) 10*6/uL Hgb 13.9 (12.0-15.0) g/dL Hct 40.1 (37.2-46.3) % MCV 88.7 (80.0-97.0) fL MCH 30.8 (27.0-32.0) pg MCHC 34.7 (32.0-37.0) g/dL Plt Count 228 (140-440) 10*3/uL MPV 11.2 (9.5-12.2) fL Immature Gran % (Auto) 0.3 % Neutrophils % 63.8 % Lymphocytes % 28.2 % Monocytes % 7.6 % Eosinophils % 0.0 % Basophils % 0.1 % Immature Gran # 0.03 (0.00-0.04) 10*3/uL Neutrophils # 5.72 (1.80-7.70) 10*3/uL Lymphocytes # 2.53 (0.90-5.00) 10*3/uL Monocytes # 0.68 (0.20-1.00) 10*3/uL Eosinophils # 0.00 L (0.04-0.35) 10*3/uL Basophils # 0.01 (0.00-0.10) 10*3/uL Sodium (137-145) mmol/L Potassium (3.5-5.1) mmol/L Chloride (98-107) mmol/L Carbon Dioxide (22-30) mmol/L Anion Gap mmol/L BUN (7-17) mg/dL Creatinine (0.52-1.04) mg/dL Est GFR (CKD-EPI)AfAm (>60 ml/min/1.73 sqM) Est GFR (CKD-EPI)NonAf (>60 ml/min/1.73 sqM) Glucose (74-99) mg/dL Plasma Lactic Acid [place] (0.7-2.0) mmol/L Calcium (8.4-10.2) mg/dL Total Bilirubin (0.2-1.3) mg/dL AST (14-36) U/L ALT (4-34) U/L Alkaline Phosphatase (38-126) U/L Total Protein (6.3-8.2) g/dL Albumin (3.5-5.0) g/dL Urine Color Urine Appearance (Clear) Urine pH (5.0-8.0) Ur Specific [place] (1.001-1.035) Urine Protein (Negative) Urine Glucose (UA) (Negative) Urine Ketones (Negative) Urine Blood (Negative) Urine Nitrite (Negative) Urine Bilirubin (Negative) Urine Urobilinogen (<2.0) mg/dL Ur Leukocyte Esterase (Negative) Disposition <Melia Boyd - Last Filed: 12/15/24 15:50> Is patient prescribed a controlled substance at d/c from ED?: No Time of Disposition: 22:30 <Kashmir Garcia - Last Filed: 12/15/24 23:00> Clinical Impression: Abdominal pain Disposition: HOME SELF-CARE Condition: Good Instructions (If sedation given, give patient instructions): Abdominal Pain ( ED) Referrals: Kelsey Pederson MD [Primary Care Provider] - 1-2 days
[2024-12-15 18:01] LABS: Basophils # (A) 0.01 10*3/uL (0.00-0.10); Basophils % (A) 0.1 %; HCT 40.1 % (37.2-46.3); HGB 13.9 g/dL (12.0-15.0); Lymphocytes # (A) 2.53 10*3/uL (0.90-5.00); Lymphocytes % (A) 28.2 %; MCH 30.8 pg (27.0-32.0); MCHC 34.7 g/dL (32.0-37.0); MCV 88.7 fL (80.0-97.0); Mean Platelet Volume 11.2 fL (9.5-12.2); Monocytes # (A) 0.68 10*3/uL (0.20-1.00); Monocytes % (A) 7.6 %; Neutrophils # (A) 5.72 10*3/uL (1.80-7.70); Neutrophils % (A) 63.8 %; Platelet Count 228 10*3/uL (140-440); RBC 4.52 10*6/uL (4.10-5.20); WBC 8.97 10*3/uL (4.50-10.00)
[2024-12-15 18:24] LABS: ALT 16 U/L (4-34); AST 19 U/L (14-36); African American GFR (CKD) >90 (>60 ml/min/1.73 sqM); Albumin 3.9 g/dL (3.5-5.0); Alkaline Phosphatase 111 U/L (38-126); Anion Gap 8 mmol/L; Blood Urea Nitrogen 13 mg/dL (7-17); Calcium 9.2 mg/dL (8.4-10.2); Carbon Dioxide 25 mmol/L (22-30); Chloride 107 mmol/L (98-107); Glucose 96 mg/dL (74-99); Non-African American GFR(CKD) 78 (>60 ml/min/1.73 sqM); Potassium 3.6 mmol/L (3.5-5.1); Sodium 140 mmol/L (137-145); Total Bilirubin 0.4 mg/dL (0.2-1.3); Total Protein 6.4 g/dL (6.3-8.2)
[2024-12-15 18:39] LABS: Appearance,Urine Clear (Clear); Bilirubin,Urine Negative (Negative); Blood,Urine Negative (Negative); Color,Urine Colorless; Glucose,Urine (UA) 4+ (Negative); Ketones,Urine Negative (Negative); Leukocyte Esterase,Urine Negative (Negative); Nitrite,Urine Negative (Negative); Protein,Urine Negative (Negative); Specific Gravity,Urine 1.025 (1.001-1.035); Urobilinogen,Urine <2.0 mg/dL (<2.0)
--- NOTE | 2024-12-15 19:03 | CT ---
EXAMINATION TYPE: CT abdomen pelvis wo con DATE OF EXAM: 12/15/2024 6:57 PM COMPARISON: Prior CT abdomen 11/08/2019. CLINICAL INDICATION: Female, 49 years old with history of right flank pain, hx kidney stones; Right f lank pain, Hx of kidney stones TECHNIQUE: Axial CT abdomen pelvis wo con;Sagittal and coronal reformats were created on a separate workstation. Oral contrast used: without Oral Contrast (none if empty) CT DLP: 293.4 mGycm, Automated exposure control for dose reduction was used. FINDINGS: LOWER CHEST: Unremarkable ABDOMEN LIVER: Unremarkable GALLBLADDER AND BILE DUCTS: The gallbladder is surgically absent. PANCREAS: Unremarkable. SPLEEN: Unremarkable. ADRENAL GLANDS: Unremarkable. KIDNEYS AND URETERS: Left kidney is absent. Right kidney without evidence of nephrolithiasis. No evid ence of right-sided hydronephrosis. PELVIS BLADDER: No evidence for wall thickening or mass given limitations of exam. REPRODUCTIVE: The uterus is surgically absent. ABDOMEN & PELVIS STOMACH AND BOWEL: Stomach and duodenum are unremarkable. No evidence of bowel obstruction. Appendix unremarkable. Moderate to large volume colonic stool burden suggesting constipation. PERITONEUM/RETROPERITONEUM: No evidence of pneumoperitoneum or free fluid. VASCULATURE: No evidence of aortic aneurysm. MUSCULOSKELETAL: No acute osseous abnormalities. Spinal stimulator device. LYMPH NODES: No gross evidence for lymphadenopathy. SOFT TISSUE/ABDOMINAL WALL: Unremarkable IMPRESSION: No acute abnormality in the abdomen/pelvis or CT findings to explain reported symptoms. [facility], , 12/15/2024 7:01 PM
[2024-12-15] MEDS: traMADol 50 MG STARTER PACK 3 TAB BTL PO STA (23:25)
[2024-12-15] MEDS: ONDANSETRON 4 MG ODT STARTER PACK 2 TAB BTL PO STA (23:26)
[2024-12-15] MEDS: ONDANSETRON 4 MG/2 ML VIAL IVP STA (23:26)
[2024-12-15] MEDS: HYDROmorphone 1 MG/ML 1 ML SYRINGE IVP STA (23:33)
[2024-12-15 23:35] VITALS: BP 107/74; PULSE 68
== END 2024-12-15 23:31 | disposition home or self-care (01) ==
LOC: EC 14:37
DX: R10.31 Right lower quadrant pain (principal); F17.200 Nicotine dependence, unspecified, uncomplicated; Z88.6 Allergy status to analgesic agent; Z88.1 Allergy status to other antibiotic agents; Z88.8 Allergy status to other drugs, medicaments and biological substances
CPT/HCPCS: 36415; 80053; 83605; 85025; 81003; 74176; 99284; 96374; J2405; S0119